=== PATIENT | female | born 1940 | race Caucasian/White ===

== ENCOUNTER 2022-11-23 09:06 | Outpatient (CLI) | payer MEDICARE, SELFPAY | END 2022-11-23 09:07 | disposition home or self-care (01) | LOC: NFLDREF 22:30 | PROVIDERS: PCP Family Medicine; Referring Provider Family Medicine; Visit Provider Family Medicine | DX: E03.9 Hypothyroidism, unspecified (principal) | CPT/HCPCS: 80053; 84439; 84443 ==

== ENCOUNTER 2023-05-03 12:13 | Outpatient (CLI) | payer MEDICARE, SELFPAY | END 2023-05-03 12:14 | disposition home or self-care (01) | PROVIDERS: PCP Family Medicine; Visit Provider Family Medicine | DX: I10 Essential (primary) hypertension (principal); E03.9 Hypothyroidism, unspecified; R63.4 Abnormal weight loss; Z12.31 Encounter for screening mammogram for malignant neoplasm of breast | CPT/HCPCS: 82607 ==

== ENCOUNTER 2023-07-03 15:34 | Outpatient (CLI) | payer MEDICARE, SELFPAY | END 2023-07-03 15:35 | disposition home or self-care (01) | LOC: AMB 07-06 13:01 | PROVIDERS: PCP Family Medicine; Visit Provider Family Medicine | DX: R06.02 Shortness of breath (principal); R09.02 Hypoxemia | CPT/HCPCS: A0425; A0427 ==

== ENCOUNTER 2023-07-03 16:23 | Inpatient (IN) | payer MEDICARE, SELFPAY ==
[2023-07-03] VITALS (25 sets, daily range): BP systolic 134–166; BP diastolic 72–95; PULSE 99–132; RESP 20–38; TEMP 36.6–37.2; O2SAT 80–98; BMI 22.5; BMI 23.2
--- NOTE | 2023-07-03 16:35 | CRLHL7_ITS ---
For Patients: As a result of the Century Cures Act, medical imaging exams and procedure reports are released immediately into your electronic medical record. You may view this report before your referring provider. If you have questions, please contact your health care provider. INDICATION: Shortness of breath TECHNIQUE: Chest 1 view. COMPARISON: Chest x-ray 03/04/2023 FINDINGS/IMPRESSION: Heart is stable in size. There is increasing interstitial thickening and opacities, bilaterally. This could represent acute pulmonary edema or pneumonia superimposed upon chronic interstitial changes. Dictated by Jennifer De La Rosa MD @ 07/03/2023 5:25:13 PM Dictated by: Jennifer De La Rosa MD @ 07/03/2023 17:25:18 (Electronically Signed)
[2023-07-03 16:46] LABS: HCO3 VBG 27 mmol/L (21-28); Lactate* 2.1 mmol/L (0.5-1.9); PCO2 VBG 44 mmHG (40-50); pH VBG 7.398 (7.32-7.43)
[2023-07-03 16:48] LABS: Basophils Percent Auto 0.1 % (0.0-3.0); Eosinophils Percent Auto 0.3 % (0.0-7.0); Hemoglobin* 10.9 gm/dL (12.0-16.0); Immature Granulocytes Pct Auto 0.1 %; Lymphocytes Percent Auto 6.1 % (20-44); Mean Corpuscular HGB Conc 32 gm/dL (32-36); Mean Corpuscular Hemoglobin 31 pg (26-34); Mean Corpuscular Volume 95 fL (80-100); Monocytes Percent Auto 8.2 % (0.0-11.0); Neutrophils Percent Auto 85.2 % (42.0-72.0); Platelet Count* 608 K/uL (140-440); RDW Coefficient of Variation % 13.7 % (11.5-15.5); Red Blood Count 3.57 m/uL (4.00-5.20)
[2023-07-03] MEDS: IPRAT-ALBUT 0.5-2.5 MG/3 ML NEB 1 NEB IH ×2 (17:00→20:08)
[2023-07-03 17:01] LABS: Chloride* 101 mmol/L (96-114); Potassium* 3.5 mmol/L (3.6-5.1); Sodium* 135 mmol/L (135-149)
[2023-07-03 17:04] LABS: Creatinine* 0.9 mg/dL (0.5-1.5); Est. Creatinine Clearance* 38.36; Estimated Glomerular Filt Rate 63 ml/min; Slide Review Reflex No
[2023-07-03 17:07] LABS: Anion Gap 10 mEq/L (7-15); Blood Urea Nitrogen* 28 mg/dL (7-30); Calcium* 8.9 mg/dL (8.4-10.6); Carbon Dioxide* 24 mmol/L (20-32); Glucose* 134 mg/dL (60-115)
[2023-07-03 17:16] LABS: ABG PCO2 35 mmHG (35-45); Base Excess ABG 3.2 mmol/L (-3.0-3.0); Carboxyhemoglobin* 1.9 % (0.0-5.0); HCO3 ABG 27 mmol/L (21-28); Lactate* 1.1 mmol/L (0.5-1.9); Oxygen Saturation ABG 96 % (92-100); PO2 ABG 71.2 mmHG (80-105); TCO2 ABG 24 mmol/l (21-30); pH ABG 7.49 (7.35-7.45)
[2023-07-03 17:20] LABS: INR 1.06 (0.91-1.10); Prothrombin Time 14.4 Seconds
[2023-07-03 17:21] LABS: Partial Thromboplastin Time* 41 Seconds (23-33)
[2023-07-03 17:23] LABS: D Dimer Quantitative* 0.95 ug/ml (0.00-0.50)
[2023-07-03 17:30] LABS: C Reactive Protein* 6.7 mg/dL (0.5-1.0)
[2023-07-03 17:36] LABS: PCR FLU A Negative PCR FLU A (Negative); PCR FLU B Negative PCR FLU B (Negative); PCR RSV Negative PCR RSV (Negative)
[2023-07-03 17:37] LABS: NT Pro B Type NatriureticPept* 3800 pg/mL; SARS PCR* Negative SARS-CoV-2 (Negative)
[2023-07-03 17:38] LABS: Troponin I* 0.04 ng/mL (0.01-0.04)
[2023-07-03] MEDS: cefTRIAXone 1 GM in 0.9 % SODIUM CHLORIDE Mini-bag 100 ML IVPB (17:51)
[2023-07-03] MEDS: AZITHROMYCIN 500 MG in 0.9 % SODIUM CHLORIDE 250 ml 250 ML 255 MG IVPB (17:52)
--- NOTE | 2023-07-03 18:13 | CRLHL7_ITS ---
For Patients: As a result of the Century Cures Act, medical imaging exams and procedure reports are released immediately into your electronic medical record. You may view this report before your referring provider. If you have questions, please contact your health care provider. INDICATION: Shortness of breath TECHNIQUE: CT chest pulmonary angiogram acquired with IV contrast. 95 mL Isovue 370 COMPARISON: None FINDINGS: Cardiovascular structures: Normal caliber thoracic aorta. Main pulmonary artery appears enlarged which be seen with pulmonary arterial hypertension. No pulmonary emboli. Heart is enlarged. Coronary artery calcification. Mediastinum and britney: Mediastinal and right hilar adenopathy. This could be reactive. Lungs: Emphysema. Diffuse ground-glass opacities. Right greater than left patchy consolidation. There is diffuse bronchiectasis as well probable honeycombing. Pleura and pericardium: No effusions. Chest wall and axilla: No mass or adenopathy. Bones: No significant findings. Upper abdomen: Unremarkable. Diffuse subcutaneous edema. IMPRESSION: 1. No pulmonary emboli. 2. Diffuse bilateral ground-glass opacities and interstitial opacities. There is bibasilar right greater than left patchy consolidation. There is bronchiectasis and honeycombing. Findings probably reflect pulmonary edema with pulmonary fibrosis. Basilar patchy consolidation right greater than left could be related to superimposed pneumonia/infection Please note that all CT scans at this facility use dose modulation, iterative reconstruction, and/or weight-based dosing when appropriate to reduce radiation dose to as low as reasonably achievable. Dictated by Mary Ann Fisher MD @ 07/03/2023 8:25:53 PM (Electronically Signed)
--- NOTE | 2023-07-03 19:17 | ED.SOB ---
HPI - SOB/Dyspnea General Date Seen: 07/03/23 Chief Complaint: Shortness of Breath/Dyspnea Stated Complaint: pain Time Seen by Provider: 07/03/23 16:45 Source: patient, family and EMS Mode of arrival: EMS Limitations: no limitations History of Present Illness HPI Narrative: Patient is very nice 83-year-old female presents here by EMS for shortness of breath, this is been building over 3 week period, but became acutely worse today that her daughter called the ambulance, she was found to have saturations in the high 70% at home, she is placed on a 10 L rebreathe and brought in, she has known pulmonary fibrosis but has not seen pulmonology for a few years. She has had some recent problems with epistaxis, but does not use home oxygen she is on no inhalers also. Denies any fevers chills or sweats, little bit of chronic nasal discharge she tells me. She denies any leg swelling, no chest pain with this no nausea vomiting, but really does not get outside her residence. No history of any heart issues as far she knows Sees Dr. Corona in [place]. Treatment prior to arrival: oxygen Related Data Home oxygen amount: none Home Medications Medication Instructions Recorded Confirmed arginine HCl (L-arginine) 1,000 mg 3,000 mg PO 12/20/22 06/01/23 tablet lutein 20 mg capsule 20 mg PO QDAY 12/20/22 06/01/23 magnesium 250 mg tablet 250 mg PO QDAY 12/20/22 06/01/23 multivitamin (Multiple Vitamins 1 tab PO QDAY 12/20/22 06/01/23 tablet) omega-3 fatty acids 1,000 mg 1,000 mg PO QDAY 12/20/22 06/01/23 capsule Previous Rx's Medication Instructions Recorded levothyroxine 125 mcg tablet 125 mcg PO QDAY #90 tabs 03/28/23 fluticasone 100 mcg-salmeterol 50 1 inh inhalation BID #60 ea 05/03/23 mcg/dose blistr powdr for inhalation mirtazapine 7.5 mg tablet 7.5 mg PO QHS #30 tabs 05/03/23 prednisone 10 mg tablet 10 mg PO QDAY #90 tabs 05/20/23 Allergies Allergy/AdvReac Type Severity Reaction Status Date / Time caffeine [From Anacin] Allergy Intermediate Swelling Verified 06/01/23 13:54 aspirin [From Anacin] Allergy Swelling Verified 06/01/23 13:54 Review of Systems Status of ROS: Reports: 10 or more systems reviewed and unremarkable except as noted in History and below PFSH [facility] Surgical History S/P LASIK (laser assisted in situ keratomileusis) ?Z98.890 - Other specified postprocedural states (ICD-10) S/P SABAS (total abdominal hysterectomy) ?Z90.710 - Acquired absence of both cervix and uterus (ICD-10) History of tonsillectomy and adenoidectomy (06/15/12) ?Z90.89 - Acquired absence of other organs (ICD-10) History of appendectomy (06/15/12) ?Z90.49 - Acquired absence of other specified parts of digestive tract (ICD-10) Social History Smoking Status: Never smoker Exam Narrative: Exam Narrative: Patient is seen in room 6, she is in no apparent distress but does have some increased worker breathing, I would describe as moderate. She can talk to me in broken sentences to start with, she is already on full oxygen at 60 L, 30%. By respiratory therapy Pupils equal round reactive to light there is no scleral icterus redness or TMs are normal her oropharynx is normal, JVP is flat, her lungs show crackles to mid scapula bilaterally, expiratory wheezes in all lung berry. Heart sounds are distant faint but S1-S2 are normal there is no S3-S4 clicks murmurs or gallops, her abdomen is soft and pot belly there is no organomegaly bowel sounds are normal. No tenderness to palpation. Her legs show very minimal pitting edema bilaterally, no unilateral swelling, no to pain. Skin reveals no rashes she is neurologically intact moving her upper lower extremities normally.. Const: Vital Signs, click to edit/add: Vital Signs - 24 hr 07/03/23 16:31 07/03/23 16:53 07/03/23 16:53 Temperature 98.7 F Pulse Rate Pulse Rate [Pulse Oximeter] 125 H Respiratory Rate 30 H 20 Blood Pressure [Ri ght Upper Arm] 166/90 H Pulse Oximetry 80 L 95 95 Oxygen Delivery Me thod Nasal Cannula High Flow Nasal Ca nnula Oxygen Flow Rate 30 Fraction of Inspir ed Oxygen 07/03/23 17:39 07/03/23 17:42 07/03/23 17:43 Temperature Pulse Rate 120 H Pulse Rate [Pulse Oximeter] Respiratory Rate Blood Pressure [Ri ght Upper Arm] Pulse Oximetry 96 Oxygen Delivery Me thod High Flow Nasal Ca nnula Oxygen Flow Rate 30 Fraction of Inspir ed Oxygen 30 30 Documenting provider has reviewed patient's vital signs: yes Course Course ED Course: Life-threatening differential diagnosis includes occluded COPD exacerbation, pulmonary edema, acute coronary syndromes, pulmonary embolism, pneumonia, and pneumothorax. Other differential diagnosis considerations include asthma, bronchitis as well as other etiologies Discussed with her, given her need for oxygen at this point she will need to be admitted, chest x-ray showed worsening of her pulmonary fibrosis, radiology thought that this was possibly consistent with either failure, flash pulmonary edema or pneumonia. Laboratory work showed elevated white count, elevated BNP, and slightly elevated D-dimer. Troponin was normal. CT scan is done with IV contrast, this shows right lower lobe, increasing pneumonic features suggestive of pneumonia, on baseline pulmonary fibrosis. I do not see any evidence on my read of pulmonary embolism. Radiology read pending. I spoke to the inpatient hospitalist, but admission she was given Rocephin and Zithromax, hospitalist attending her here in the emergency room. Vital Signs Vital signs: Initial Vital Signs Respiratory Effort Normal 07/03/23 16:30 Respiratory Depth Normal 07/03/23 16:30 Respiratory Pattern Normal 07/03/23 16:30 Vital Signs Temperature 98.7 F 07/03/23 16:31 Pulse Rate 125 H 07/03/23 16:31 Respiratory Rate 30 H 07/03/23 16:31 Blood Pressure 166/90 H 07/03/23 16:31 Pulse Oximetry 80 L 07/03/23 16:31 Oxygen Delivery Method Nasal Cannula 07/03/23 16:31 Temperature 98.7 F 07/03/23 16:31 Pulse Rate 120 H 07/03/23 17:39 Respiratory Rate 20 07/03/23 16:53 Blood Pressure 166/90 H 07/03/23 16:31 Pulse Oximetry 96 07/03/23 17:39 Oxygen Delivery Method High Flow Nasal Cannula 07/03/23 17:43 Oxygen Flow Rate 30 07/03/23 17:42 Fraction of Inspired Oxygen 30 07/03/23 17:43 MDM - SOB/Dyspnea Medical Records Attestation: I reviewed the patient's medical records. Lab Data Attestation: I reviewed the patient's lab results. Labs: Lab Results 07/03/23 07/03/23 07/03/23 Range/Units 16:38 17:10 Unknown WBC 14.60 H (4.50-11.00) K/uL RBC 3.57 L (4.00-5.20) m/uL Hgb 10.9 L (12.0-16.0) gm/dL Hct 34.0 (33.0-51.0) % MCV 95 (80-100) fL MCH 31 (26-34) pg MCHC 32 (32-36) gm/dL RDW Coeff of Radha 13.7 (11.5-15.5) % Plt Count 608 H (140-440) K/uL Neut % (Auto) 85.2 H (42.0-72.0) % Lymph % (Auto) 6.1 L (20-44) % Nicholas % (Auto) 8.2 (0.0-11.0) % Eos % (Auto) 0.3 (0.0-7.0) % Baso % (Auto) 0.1 (0.0-3.0) % Neut # (Auto) 12.40 H (1.7-7.0) K/uL Lymph # (Auto) 0.90 (0.90-2.90) K/uL Nicholas # (Auto) 1.20 H (0.00-0.90) K/UL Eos # (Auto) 0.00 (0.00-0.50) K/uL Baso # (Auto) 0.00 (0.00-0.30) K/uL Abs Immat Gran (auto) 0.00 (0.00-0.30) K/uL Imm/Tot Granulo (auto) 0.1 % INR 1.06 (0.91-1.10) APTT 41 H (23-33) Seconds D-Dimer Quant (PE/DVT) 0.95 H (0.00-0.50) ug/ml ABG pH 7.49 H (7.35-7.45) ABG pCO2 35 (35-45) mmHG ABG pO2 71.2 L (80-105) mmHG ABG HCO3 27 (21-28) mmol/L ABG Total CO2 24 (21-30) mmol/l ABG O2 Saturation 96 (92-100) % ABG Base Excess 3.2 H (-3.0-3.0) mmol/L VBG pH 7.398 (7.32-7.43) VBG pCO2 44 (40-50) mmHG VBG pO2 34.0 (25-47) mmHG VBG HCO3 27 (21-28) mmol/L Carboxyhemoglobin 1.9 (0.0-5.0) % Sodium 135 (135-149) mmol/L Potassium 3.5 L (3.6-5.1) mmol/L Chloride 101 (96-114) mmol/L Carbon Dioxide 24 (20-32) mmol/L Anion Gap 10 (7-15) mEq/L BUN 28 (7-30) mg/dL Creatinine 0.9 (0.5-1.5) mg/dL Estimated Creat Clear 38.36 Estimated GFR 63 ml/min Glucose 134 H (60-115) mg/dL Lactate 2.1 H 1.1 (0.5-1.9) mmol/L Calcium 8.9 (8.4-10.6) mg/dL Troponin I 0.04 (0.01-0.04) ng/mL C-Reactive Protein 6.7 H (0.5-1.0) mg/dL NT-Pro-B Natriuret Pep 3800 pg/mL SARS-CoV-2 (PCR) Negative SARS-CoV-2 (Negative) Influenza Type A (PCR) Negative PCR FLU A (Negative) Influenza Type B (PCR) Negative PCR FLU B (Negative) RSV (PCR) Negative PCR RSV (Negative) Imaging Data Chest x-ray: Attestation: I have reviewed the pertinent imaging results. Discharge Plan Discharge Clinical Impression: Shortness of breath, Pulmonary fibrosis, Hypoxia, Pneumonia Patient Disposition: Admitted As Inpatient Condition: Improved
[2023-07-03] MEDS: FUROSEMIDE 10 MG/ML inj 20 MG IVP (21:20)
[2023-07-03] MEDS: ALBUTEROL SULFATE 2.5 MG/3 ML VIAL.NEB NEB (21:21)
[2023-07-03] MEDS: DOXYCYCLINE HYCLATE 100 MG PO (21:22)
[2023-07-03] MEDS: MIRTAZAPINE 15 MG TABLET 7.5 MG PO (21:22)
[2023-07-03] MEDS: predniSONE 10 MG TABLET PO (21:23)
[2023-07-03] MEDS: SODIUM CHLORIDE 0.9 % (FLUSH) 10 ML SYRINGE 5 ML IVF (21:23)
--- NOTE | 2023-07-03 21:24 | PM.IMHP1 ---
Hospitalist- H&P: HPI History of Present Illness Date Seen: 07/03/23 Chief complaint: Shortness of breath Narrative: Nicole Restrepo is a 83 year old woman who presents with the 3 week history of increasing dyspnea. Patient known to have chronic interstitial pulmonary fibrosis. Heretofore has not utilize oxygen supplementation. Does have an oximeter device at her home and she reluctantly tells me that she has noticed her oxygen saturations BP in the 70s for the last 2-3 weeks. Her daughter came to visit her today and noticed how sickly her mother looked in finally convinced her to come in for further assessment. Ambulance was summoned via EMS. Found to have room air oxygen saturations in the mid to upper 70s at home. Started on a 10 liter/minute rebreather mask oxygen supplementation. Known to have pulmonary interstitial fibrosis for number of years. 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 Has had intermittent epistaxis for the last several months. Denies fevers, rigors, diaphoresis. Has chronic dry cough. Chronic postnasal drip. No syncope or near syncope. No nausea vomiting. No chest pressure, tightness, heaviness, or pain. No edema. No claudication. Review of Systems Status of ROS: Reports: 10 or more systems reviewed and unremarkable except as noted in History and below Narrative: Denies dyspepsia, odynophagia, dysphagia, aspiration, gagging, trauma, injury, travel, any febrile illnesses. Denies dysuria, urgency, frequency, hematuria. Denies diarrhea or constipation. No rashes, cyanosis, petechiae, or wounds. Designates her daughter as her power of tax associate attorney for health should that be required. Unequivocally requests DNR DNI resuscitation status. [facility] Medical History Pulmonary fibrosis ?J84.10 - Pulmonary fibrosis, unspecified (ICD-10) Epistaxis ?R04.0 - Epistaxis (ICD-10) Chronic cough ?R05.3 - Chronic cough (ICD-10) Chronic dyspnea ?R06.09 - Other forms of dyspnea (ICD-10) Osteoarthritis of right knee ?M17.11 - Unilateral primary osteoarthritis, right knee (ICD-10) Osteoarthritis of lumbar spine ?M47.816 - Spondylosis without myelopathy or radiculopathy, lumbar region (ICD-10) Hypertension ?I10 - Essential (primary) hypertension (ICD-10) Hypothyroidism ?E03.9 - Hypothyroidism, unspecified (ICD-10) Surgical History S/P LASIK (laser assisted in situ keratomileusis) ?Z98.890 - Other specified postprocedural states (ICD-10) S/P SABAS (total abdominal hysterectomy) ?Z90.710 - Acquired absence of both cervix and uterus (ICD-10) History of tonsillectomy and adenoidectomy (06/15/12) ?Z90.89 - Acquired absence of other organs (ICD-10) History of appendectomy (06/15/12) ?Z90.49 - Acquired absence of other specified parts of digestive tract (ICD-10) Social History Smoking Status: Never smoker Meds Home Medications and Allergies Home Medications Medication Instructions Recorded Confirmed Type arginine HCl (L-arginine) 1,000 mg 3,000 mg PO 12/20/22 06/01/23 History tablet lutein 20 mg capsule 20 mg PO QDAY 12/20/22 06/01/23 History magnesium 250 mg tablet 250 mg PO QDAY 12/20/22 06/01/23 History multivitamin (Multiple Vitamins 1 tab PO QDAY 12/20/22 06/01/23 History tablet) omega-3 fatty acids 1,000 mg 1,000 mg PO QDAY 12/20/22 06/01/23 History capsule Allergies Allergy/AdvReac Type Severity Reaction Status Date / Time caffeine [From Anacin] Allergy Intermediate Swelling Verified 06/01/23 13:54 aspirin [From Anacin] Allergy Swelling Verified 06/01/23 13:54 Exam Narrative: Exam Narrative: Examined patient emergency department. Vision and hearing are normal. Appears ill. Dry cough intermittently. Friendly, articulate, cooperative. Gracious. Alert and oriented to self, place, time, situation. Normal tympanic membranes. Deviated nasal septum. Dry buccal mucosa. Dentition in fair repair. No icterus or jaundice. No conjunctival injection. Pupils equally round react to light and accommodation. Extraocular muscles are intact. Conjugate gaze. Midline trachea. No head neck lymphadenopathy. Neck supple. Lungs with scattered wheezes with coarse rales bilaterally right base more so than the left. Chest wall excursions are full. Heart tones with regular rhythm, normal S1-S2. Abdomen with active bowel sounds, soft, nontender. Extremities without edema. Dyspnea with minimal exertion. Dyspnea with talking. Const: Vital Signs, click to edit/add: Vital Signs - 24 hr 07/03/23 16:31 07/03/23 16:35 07/03/23 16:53 Temperature 98.7 F Pulse Rate Pulse Rate [Pulse Oximeter] 125 H Respiratory Rate 30 H Blood Pressure Blood Pressure [Ri ght Upper Arm] 166/90 H Pulse Oximetry 80 L 95 Oxygen Delivery Me thod Nasal Cannula Oxygen Flow Rate Fraction of Inspir ed Oxygen 30 07/03/23 16:53 07/03/23 17:39 07/03/23 17:40 Temperature Pulse Rate 120 H 123 H Pulse Rate [Pulse Oximeter] Respiratory Rate 20 Blood Pressure Blood Pressure [Ri ght Upper Arm] Pulse Oximetry 95 96 96 Oxygen Delivery Me thod High Flow Nasal Ca nnula Oxygen Flow Rate 30 Fraction of Inspir ed Oxygen 07/03/23 17:42 07/03/23 17:43 07/03/23 17:50 Temperature Pulse Rate 126 H Pulse Rate [Pulse Oximeter] Respiratory Rate Blood Pressure Blood Pressure [Ri ght Upper Arm] Pulse Oximetry 93 Oxygen Delivery Me thod High Flow Nasal Ca nnula Oxygen Flow Rate 30 Fraction of Inspir ed Oxygen 30 30 07/03/23 18:00 07/03/23 18:10 07/03/23 18:20 Temperature Pulse Rate 127 H 99 110 H Pulse Rate [Pulse Oximeter] Respiratory Rate Blood Pressure Blood Pressure [Ri ght Upper Arm] Pulse Oximetry 96 98 94 Oxygen Delivery Me thod Oxygen Flow Rate Fraction of Inspir ed Oxygen 07/03/23 18:30 07/03/23 18:40 07/03/23 19:04 Temperature Pulse Rate 110 H 126 H 118 H Pulse Rate [Pulse Oximeter] Respiratory Rate Blood Pressure Blood Pressure [Ri ght Upper Arm] Pulse Oximetry 96 96 81 L Oxygen Delivery Me thod Oxygen Flow Rate Fraction of Inspir ed Oxygen 07/03/23 19:06 07/03/23 19:10 07/03/23 19:20 Temperature Pulse Rate 114 H 132 H 115 H Pulse Rate [Pulse Oximeter] Respiratory Rate Blood Pressure 142/88 H Blood Pressure [Ri ght Upper Arm] Pulse Oximetry 87 L 89 92 Oxygen Delivery Me thod Oxygen Flow Rate Fraction of Inspir ed Oxygen 07/03/23 19:30 07/03/23 19:40 07/03/23 19:50 Temperature Pulse Rate 123 H 116 H 108 H Pulse Rate [Pulse Oximeter] Respiratory Rate Blood Pressure Blood Pressure [Ri ght Upper Arm] Pulse Oximetry 85 L 90 92 Oxygen Delivery Me thod Oxygen Flow Rate Fraction of Inspir ed Oxygen 07/03/23 20:00 07/03/23 20:39 Temperature Pulse Rate 108 H Pulse Rate [Pulse Oximeter] Respiratory Rate Blood Pressure Blood Pressure [Ri ght Upper Arm] Pulse Oximetry 90 Oxygen Delivery Me thod Oxygen Flow Rate 20 Fraction of Inspir ed Oxygen 40 Documenting provider has reviewed patient's vital signs: yes Hospitalist - H&P: Result Labs Labs: Short CBC 07/03/23 Range/Units 16:38 WBC 14.60 H (4.50-11.00) K/uL Hgb 10.9 L (12.0-16.0) gm/dL Hct 34.0 (33.0-51.0) % Plt Count 608 H (140-440) K/uL BMP 07/03/23 16:38 Sodium 135 Potassium 3.5 L Chloride 101 Carbon Dioxide 24 BUN 28 Creatinine 0.9 Glucose 134 H Calcium 8.9 Cardiac Enzymes 07/03/23 Range/Units 16:38 Troponin I 0.04 (0.01-0.04) ng/mL Imaging Chest x-ray: Attestation: I have reviewed the pertinent imaging results. Radiologist's impression: 07/03/2023 FINDINGS/IMPRESSION: Heart is stable in size. There is increasing interstitial thickening and opacities, bilaterally. This could represent acute pulmonary edema or pneumonia superimposed upon chronic interstitial changes. CT angiogram of chest: Attestation: I have reviewed the pertinent imaging results. Radiologist's impression: 07/03/2023 IMPRESSION: 1. No pulmonary emboli. 2. Diffuse bilateral ground-glass opacities and interstitial opacities. There is bibasilar right greater than left patchy consolidation. There is bronchiectasis and honeycombing. Findings probably reflect pulmonary edema with pulmonary fibrosis. Basilar patchy consolidation right greater than left could be related to superimposed pneumonia/infection Assessment and Plan Assessment and plan (1) Acute on chronic respiratory failure with hypoxemia: Problem comment: - her resting, room air oxygen saturations on 1st presentation in the low to mid 70s. - high-flow oxygen 30 liters/minute FiO2 60 maintain saturations 90-92%. Status: Acute (2) Pulmonary fibrosis: Problem comment: - continue with oxygen supplementation as instituted in the hospital. - will request a consultation from respiratory therapy. Need to start looking at home O2 needs. Status: Acute (3) Pneumonia: Problem comment: - I suspect patient has a superimposed pneumonia, community-acquired. - initiate ceftriaxone 1 g IV Q 24 hours and oral doxycycline 100 mg twice daily. Status: Acute (4) Chronic cough: Problem comment: - initiate hydroxyzine 25 mg q.4 hours p.r.n.. Status: Acute (5) Chronic dyspnea: Problem comment: - patient already notes an improvement in her condition with oxygen supplementation. Status: Acute (6) Hypothyroidism: Problem comment: - continue with levothyroxine supplementation. Status: Acute (7) Hypertension: Problem comment: - continue supportive efforts. Status: Acute (8) Epistaxis: Problem comment: - intermittently problematic. Status: Acute (9) Shortness of breath: Problem comment: - multifactorial on presentation to the hospital. Status: Acute Plan 1. Reviewed impression with patient and her daughter. 2. Answered their questions. 3. They are agreeable with above stated plans and recommendations. 4. Consider discussing the options for palliative care versus hospice support.
[2023-07-04] VITALS (19 sets, daily range): BP systolic 112–137; BP diastolic 70–83; PULSE 90–112; RESP 20–28; TEMP 36.1–37.6; O2SAT 90–96; BMI 21.7
[2023-07-04] MEDS: IPRAT-ALBUT 0.5-2.5 MG/3 ML NEB 1 NEB IH ×4 (02:11→20:48)
[2023-07-04 03:21] LABS: HCO3 VBG 30 mmol/L (21-28); PCO2 VBG 43 mmHG (40-50); PO2 VBG 51.6 mmHG (25-47)
[2023-07-04 03:23] LABS: Hematocrit 28.5 % (33.0-51.0); Hemoglobin* 9.4 gm/dL (12.0-16.0); Mean Corpuscular HGB Conc 33 gm/dL (32-36); Mean Corpuscular Hemoglobin 31 pg (26-34); Mean Corpuscular Volume 94 fL (80-100); Platelet Count* 413 K/uL (140-440); Red Blood Count 3.03 m/uL (4.00-5.20); Slide Review Reflex No; White Blood Count* 12.14 K/uL (4.50-11.00)
[2023-07-04 03:36] LABS: Chloride* 101 mmol/L (96-114); Potassium* 3.5 mmol/L (3.6-5.1); Sodium* 136 mmol/L (135-149)
[2023-07-04 03:39] LABS: Creatinine* 0.8 mg/dL (0.5-1.5); Est. Creatinine Clearance* 38.36; Estimated Glomerular Filt Rate 73 ml/min
[2023-07-04 03:40] LABS: Anion Gap 6 mEq/L (7-15); Blood Urea Nitrogen* 22 mg/dL (7-30); Calcium* 8.2 mg/dL (8.4-10.6); Carbon Dioxide* 29 mmol/L (20-32); Glucose* 123 mg/dL (60-115); Phosphorus* 5.1 mg/dL (2.5-4.5)
[2023-07-04 03:43] LABS: C Reactive Protein* 7.4 mg/dL (0.5-1.0)
[2023-07-04 03:52] LABS: Troponin I* 0.03 ng/mL (0.01-0.04)
[2023-07-04 03:57] LABS: Procalcitonin* 0.34 ng/mL (<0.50)
[2023-07-04] MEDS: LEVOTHYROXINE 125 MCG TABLET PO (06:41)
[2023-07-04] MEDS: FUROSEMIDE 10 MG/ML inj 40 MG IVP ×2 (08:21→16:43)
[2023-07-04] MEDS: METOPROLOL TARTRATE 1 MG/ML inj 5 MG IVP (08:21)
[2023-07-04] MEDS: POTASSIUM BICARB 25 MEQ EFFERVESCENT TAB 50 MEQ PO ×2 (08:21→16:43)
[2023-07-04] MEDS: MAGNESIUM OXIDE 400 MG TABLET PO (08:22)
[2023-07-04] MEDS: DOXYCYCLINE HYCLATE 100 MG PO ×2 (08:22→20:48)
[2023-07-04] MEDS: SODIUM CHLORIDE 0.9 % (FLUSH) 10 ML SYRINGE 5 ML IVF ×2 (08:24→20:50)
[2023-07-04] MEDS: BENZOCAINE/MENTHOL 1 EACH LOZENGE MUCOUS MEM (10:29)
--- NOTE | 2023-07-04 10:53 | REH.PT ---
Pt refusing PT eval d/t stomach upset and fatigue from medication. Will reattempt tomorrow.
--- NOTE | 2023-07-04 10:53 | RESP.RT ---
Decreased Oxygen to 45% FiO2, Flow 20 Lpm, temperature 36 degrees (C) on HFNC. Goal is to maintain SaO2 >90%, Patient may be off HFNC for short periods of time, on either Nasal Cannula or OxyMask and Flows maintaining Goal. Portable tank was placed in room with 14 foot tubing and connector to HFNC tubing so patient may walk to bathroom, and around room as she feels able to do.
[2023-07-04] MEDS: METOPROLOL TARTRATE 25 MG TABLET PO ×2 (12:23→20:48)
--- NOTE | 2023-07-04 13:41 | P.IMPN_ITS ---
Progress Note: A&P Assessment and plan (1) Acute on chronic respiratory failure with hypoxemia: Problem details: The cause of her acute hypoxic respiratory failure appears to be related to her underlying pulmonary fibrosis plus a new respiratory insult. Clinically this appears to be either a relatively diffuse patchy pneumonia or pulmonary edema. This point will treat for both conditions and follow. Status: Acute (2) Chronic cough: Problem details: - initiate hydroxyzine 25 mg q.4 hours p.r.n.. Status: Acute (3) Hypothyroidism: Problem details: - continue with levothyroxine supplementation. Check TSH Status: Acute (4) Pulmonary fibrosis: Problem details: - continue with oxygen supplementation as instituted in the hospital. - will request a consultation from respiratory therapy. Status: Acute (5) Pneumonia: Problem details: - I suspect patient has a superimposed pneumonia, community-acquired. - initiate ceftriaxone 1 g IV Q 24 hours and oral doxycycline 100 mg twice daily. Status: Acute (6) Sinus tachycardia: Problem details: she has a fairly marked sinus tachycardia which may be due to her respiratory failure primarily. Alternatively she could be having primary cardiac problem manifesting as sinus tachycardia. At this point will provide rate control and diuresis pending echocardiogram and further monitoring Status: Acute Plan continue in hospital for oxygen support, treatment of pneumonia and heart failure. Ongoing evaluation management of hypoxia and still a plan to return home at discharge Time Spent With Patient Total time spent: total time spent today is 60 minutes, 40 minutes in coordination of care discussing with patient and daughter and other providers management of hypoxic respiratory failure Subjective Date Seen: 07/04/23 Interval history: 83-year-old female with pulmonary fibrosis admitted to the hospital with a 2 month history of progressive dyspnea. patient lives independently in her own home where she was generally doing well until about 2 months ago when she started to have worsening dyspnea. She gradually was intolerant of much activity. Her daughter had urged her to come to the hospital but she had resistant until last night when she finally gave in. She has not had a fever. She has a dry cough which is getting a little bit worse. She has not had any chest pain. She is not aware of any palpitations she does not have any edema. She does note that she is losing weight. our records indicate that she has lost 9 kg in the last 6 months. She thinks it might be much more over the last year and a half. She reports generally she does does not have much of an appetite. She monitors her oximetry at home and is consistently in the 90s up until the last few weeks. She lives independently is able to perform all of her tasks around the house until recently. This summer she was mowing her lawn with a riding lawnmower. She has stopped going out of the house and doing a lot of activities because of her exertional dyspnea. She has had some episodes of epistaxis and is having her nose cauterized A couple times with good success. She has pulmonary fibrosis and has been followed by a incendiary powder mixer until COVID. Since then she has not been back to the incendiary powder mixer. She is not aware of any heart disease. He has no chest pain, Edema or nocturnal dyspnea. overnight she was admitted to the hospital and placed on high-flow oxygen to keep her O2 sats at 90%. She reports her breathing is better on with supplemental oxygen. Exam Narrative: Exam Narrative: She is alert and appears in mild respiratory distress with increased rate and work of breathing. She has mild conversational dyspnea. Oropharynx is normal. Neck is supple without mass or adenopathy. No jugular venous distension. Respirations with diffuse crackles and diminished breath sounds. No marked wheezing. No marked prolonged expiratory phase. She is visibly tachypneic however. Cardiovascular: S1, S2, irregularly tachycardic. telemetry shows sinus tachycardia with premature atrial beats. Abdomen is soft without tenderness or mass. Extremities without edema. Const: Vital Signs, click to edit/add: Vital Signs - 24 hr 07/03/23 16:31 07/03/23 16:35 07/03/23 16:53 Temperature 98.7 F Pulse Rate Pulse Rate [Pulse Oximeter] 125 H Respiratory Rate 30 H Blood Pressure Blood Pressure [Le ft Arm] Blood Pressure [Ri ght Upper Arm] 166/90 H Pulse Oximetry 80 L 95 Oxygen Delivery Me thod Nasal Cannula Oxygen Flow Rate Fraction of Inspir ed Oxygen 30 07/03/23 16:53 07/03/23 17:39 07/03/23 17:40 Temperature Pulse Rate 120 H 123 H Pulse Rate [Pulse Oximeter] Respiratory Rate 20 Blood Pressure Blood Pressure [Le ft Arm] Blood Pressure [Ri ght Upper Arm] Pulse Oximetry 95 96 96 Oxygen Delivery Me thod High Flow Nasal Ca nnula Oxygen Flow Rate 30 Fraction of Inspir ed Oxygen 07/03/23 17:42 07/03/23 17:43 07/03/23 17:50 Temperature Pulse Rate 126 H Pulse Rate [Pulse Oximeter] Respiratory Rate Blood Pressure Blood Pressure [Le ft Arm] Blood Pressure [Ri ght Upper Arm] Pulse Oximetry 93 Oxygen Delivery Me thod High Flow Nasal Ca nnula Oxygen Flow Rate 30 Fraction of Inspir ed Oxygen 30 30 07/03/23 18:00 07/03/23 18:10 07/03/23 18:20 Temperature Pulse Rate 127 H 99 110 H Pulse Rate [Pulse Oximeter] Respiratory Rate Blood Pressure Blood Pressure [Le ft Arm] Blood Pressure [Ri ght Upper Arm] Pulse Oximetry 96 98 94 Oxygen Delivery Me thod Oxygen Flow Rate Fraction of Inspir ed Oxygen 07/03/23 18:30 07/03/23 18:40 07/03/23 19:04 Temperature Pulse Rate 110 H 126 H 118 H Pulse Rate [Pulse Oximeter] Respiratory Rate Blood Pressure Blood Pressure [Le ft Arm] Blood Pressure [Ri ght Upper Arm] Pulse Oximetry 96 96 81 L Oxygen Delivery Me thod Oxygen Flow Rate Fraction of Inspir ed Oxygen 07/03/23 19:06 07/03/23 19:10 07/03/23 19:20 Temperature Pulse Rate 114 H 132 H 115 H Pulse Rate [Pulse Oximeter] Respiratory Rate Blood Pressure 142/88 H Blood Pressure [Le ft Arm] Blood Pressure [Ri ght Upper Arm] Pulse Oximetry 87 L 89 92 Oxygen Delivery Me thod Oxygen Flow Rate Fraction of Inspir ed Oxygen 07/03/23 19:30 07/03/23 19:40 07/03/23 19:50 Temperature Pulse Rate 123 H 116 H 108 H Pulse Rate [Pulse Oximeter] Respiratory Rate Blood Pressure Blood Pressure [Le ft Arm] Blood Pressure [Ri ght Upper Arm] Pulse Oximetry 85 L 90 92 Oxygen Delivery Me thod Oxygen Flow Rate Fraction of Inspir ed Oxygen 07/03/23 20:00 07/03/23 20:30 07/03/23 20:39 Temperature 97.9 F Pulse Rate 108 H Pulse Rate [Pulse Oximeter] 120 H Respiratory Rate 36 H Blood Pressure Blood Pressure [Le ft Arm] 160/95 H Blood Pressure [Ri ght Upper Arm] Pulse Oximetry 90 90 Oxygen Delivery Me thod High Flow Nasal Ca nnula Oxygen Flow Rate 20 20 Fraction of Inspir ed Oxygen 40 40 07/03/23 21:30 07/03/23 21:48 07/03/23 22:00 Temperature Pulse Rate 116 H Pulse Rate [Pulse Oximeter] 114 H Respiratory Rate 38 H 28 H Blood Pressure Blood Pressure [Le ft Arm] 134/72 Blood Pressure [Ri ght Upper Arm] Pulse Oximetry 90 94 Oxygen Delivery Me thod High Flow Nasal Ca nnula High Flow Nasal Ca nnula Oxygen Flow Rate 20 20 Fraction of Inspir ed Oxygen 40 40 07/03/23 23:00 07/03/23 23:00 07/03/23 23:00 Temperature Pulse Rate Pulse Rate [Pulse Oximeter] 112 H Respiratory Rate 32 H Blood Pressure Blood Pressure [Le ft Arm] Blood Pressure [Ri ght Upper Arm] Pulse Oximetry 92 Oxygen Delivery Me thod Oxygen Flow Rate Fraction of Inspir ed Oxygen 40 07/03/23 23:00 07/04/23 00:00 07/04/23 02:00 Temperature 99.0 F Pulse Rate Pulse Rate [Pulse Oximeter] 112 H Respiratory Rate 32 H Blood Pressure Blood Pressure [Le ft Arm] 140/89 H Blood Pressure [Ri ght Upper Arm] Pulse Oximetry 92 Oxygen Delivery Me thod High Flow Nasal Ca nnula Oxygen Flow Rate 20 Fraction of Inspir ed Oxygen 40 40 40 07/04/23 02:00 07/04/23 04:00 07/04/23 06:00 Temperature 98.3 F Pulse Rate Pulse Rate [Pulse Oximeter] 110 H Respiratory Rate 28 H Blood Pressure Blood Pressure [Le ft Arm] 125/70 Blood Pressure [Ri ght Upper Arm] Pulse Oximetry 94 Oxygen Delivery Me thod High Flow Nasal Ca nnula Oxygen Flow Rate 20 Fraction of Inspir ed Oxygen 40 40 50 07/04/23 07:00 07/04/23 07:00 07/04/23 07:00 Temperature 98.8 F Pulse Rate 96 Pulse Rate [Pulse Oximeter] 112 H 112 H Respiratory Rate 28 H 28 H Blood Pressure Blood Pressure [Le ft Arm] 137/83 Blood Pressure [Ri ght Upper Arm] Pulse Oximetry 90 Oxygen Delivery Me thod High Flow Nasal Ca nnula Oxygen Flow Rate 20 Fraction of Inspir ed Oxygen 50 07/04/23 08:00 07/04/23 08:20 07/04/23 10:00 Temperature Pulse Rate Pulse Rate [Pulse Oximeter] Respiratory Rate Blood Pressure Blood Pressure [Le ft Arm] Blood Pressure [Ri ght Upper Arm] Pulse Oximetry Oxygen Delivery Me thod Oxygen Flow Rate 20 Fraction of Inspir ed Oxygen 50 50 50 07/04/23 10:52 07/04/23 11:40 07/04/23 12:00 Temperature 99.7 F H Pulse Rate Pulse Rate [Pulse Oximeter] 97 Respiratory Rate 28 H Blood Pressure Blood Pressure [Le ft Arm] 120/75 Blood Pressure [Ri ght Upper Arm] Pulse Oximetry 93 94 Oxygen Delivery Me thod High Flow Nasal Ca nnula High Flow Nasal Ca nnula Oxygen Flow Rate 20 20 Fraction of Inspir ed Oxygen 45 45 45 07/04/23 12:57 Temperature Pulse Rate Pulse Rate [Pulse Oximeter] Respiratory Rate Blood Pressure Blood Pressure [Le ft Arm] Blood Pressure [Ri ght Upper Arm] Pulse Oximetry Oxygen Delivery Me thod Oxygen Flow Rate 20 Fraction of Inspir ed Oxygen 45 Documenting provider has reviewed patient's vital signs: yes Labs Labs: Laboratory Results - last 24 hr 07/03/23 07/03/23 07/03/23 16:38 17:10 Unknown WBC 14.60 H RBC 3.57 L Hgb 10.9 L Hct 34.0 MCV 95 MCH 31 MCHC 32 RDW Coeff of Radha 13.7 Plt Count 608 H Neut % (Auto) 85.2 H Lymph % (Auto) 6.[address] [place] % (Auto) 8.2 Eos % (Auto) 0.3 Baso % (Auto) 0.1 Neut # (Auto) 12.40 H Lymph # (Auto) 0.90 [place] # (Auto) 1.20 H Eos # (Auto) 0.00 Baso # (Auto) 0.00 Abs Immat Gran (auto) 0.00 Imm/Tot Granulo (auto) 0.1 INR 1.06 APTT 41 H D-Dimer Quant (PE/DVT) 0.95 H ABG pH 7.49 H ABG pCO2 35 ABG pO2 71.2 L ABG HCO3 27 ABG Total CO2 24 ABG O2 Saturation 96 ABG Base Excess 3.2 H VBG pH 7.398 VBG pCO2 44 VBG pO2 34.0 VBG HCO3 27 Carboxyhemoglobin 1.9 Sodium 135 Potassium 3.5 L Chloride 101 Carbon Dioxide 24 Anion Gap 10 BUN 28 Creatinine 0.9 Estimated Creat Clear 38.36 Estimated GFR 63 Glucose 134 H Lactate 2.1 H 1.1 Calcium 8.9 Phosphorus Magnesium Troponin I 0.04 C-Reactive Protein 6.7 H NT-Pro-B Natriuret Pep 3800 Procalcitonin SARS-CoV-2 (PCR) Negative SARS-CoV-2 Influenza Type A (PCR) Negative PCR FLU A Influenza Type B (PCR) Negative PCR FLU B RSV (PCR) Negative PCR RSV 07/04/23 03:15 WBC 12.14 H RBC 3.03 L Hgb 9.4 L Hct 28.5 L MCV 94 MCH 31 MCHC 33 RDW Coeff of Radha Plt Count 413 Neut % (Auto) Lymph % (Auto) [place] % (Auto) Eos % (Auto) Baso % (Auto) Neut # (Auto) Lymph # (Auto) [place] # (Auto) Eos # (Auto) Baso # (Auto) Abs Immat Gran (auto) Imm/Tot Granulo (auto) INR APTT D-Dimer Quant (PE/DVT) ABG pH ABG pCO2 ABG pO2 ABG HCO3 ABG Total CO2 ABG O2 Saturation ABG Base Excess VBG pH 7.440 H VBG pCO2 43 VBG pO2 51.6 H VBG HCO3 30 H Carboxyhemoglobin Sodium 136 Potassium 3.5 L Chloride 101 Carbon Dioxide 29 Anion Gap 6 L BUN 22 Creatinine 0.8 Estimated Creat Clear 38.36 Estimated GFR 73 Glucose 123 H Lactate 1.0 Calcium 8.2 L Phosphorus 5.1 H Magnesium 2.0 Troponin I 0.03 C-Reactive Protein 7.4 H NT-Pro-B Natriuret Pep Procalcitonin 0.34 SARS-CoV-2 (PCR) Influenza Type A (PCR) Influenza Type B (PCR) RSV (PCR)
[2023-07-04] MEDS: cefTRIAXone 1 GM in 0.9 % SODIUM CHLORIDE Mini-bag 100 ML IVPB (16:44)
--- NOTE | 2023-07-04 18:20 | PC.NURSE ---
End of shift note: patient is alert and oriented x4, denies pain, N/V. Patient on Highflow and tolerating well. O2 Stats between 90-95%. Patient is assist of 1 to Bedside commode. IV in left AC SL. Not much of an appetite today, needs encouragement to eat.
[2023-07-04] MEDS: MIRTAZAPINE 15 MG TABLET 7.5 MG PO (20:48)
[2023-07-04] MEDS: predniSONE 10 MG TABLET PO (20:50)
[2023-07-05] VITALS (16 sets, daily range): BP systolic 113–146; BP diastolic 63–98; PULSE 76–92; RESP 20–24; TEMP 36.1–36.8; O2SAT 88–96; BMI 21.7
[2023-07-05] MEDS: LEVOTHYROXINE 125 MCG TABLET PO (06:31)
--- NOTE | 2023-07-05 07:28 | PC.NURSE ---
End of shift [id number] ? Pt alert and cooperative, but reported feeling fatigued during shift. Requested being left to sleep during overnight hours. Up with 1 assist, stand and pivot to bedside commode. Continent of bowel and bladder during shift. Tolerating high flow and maintaining O2 saturation from 90-95%. Pt denied pain, observed to sleep during shift. Appears to be resting comfortably at end of shift.
--- NOTE | 2023-07-05 09:11 | RESP.RT ---
Weaning Oxygen; 0815 SaO2 95%, decreased FiO2 35%, 0845 SaO2 93% decreased FiO2 30%, SaO2 decreased to 91 %. Goal to Maintain SaO2 >90%. Adjusting FiO2 as needed. Continues on HFNC, appears comfortable. Breathing regular/easy, 22/minute. BBS with diminished with fine crackles noted.
[2023-07-05] MEDS: METOPROLOL TARTRATE 25 MG TABLET PO ×2 (09:30→20:46)
[2023-07-05] MEDS: MAGNESIUM OXIDE 400 MG TABLET PO (09:30)
[2023-07-05] MEDS: IPRAT-ALBUT 0.5-2.5 MG/3 ML NEB 1 NEB IH ×3 (09:30→20:47)
[2023-07-05] MEDS: DOXYCYCLINE HYCLATE 100 MG PO ×2 (09:30→20:47)
--- NOTE | 2023-07-05 09:30 | RESP.RT ---
Patient SaO2 decreased to 80%, Nurse increased FiO2 to 40% to assist in patient recovery SaO2. Will continue weaning post activity.
[2023-07-05 10:01] LABS: Basophils Percent Auto 0.3 % (0.0-3.0); Hematocrit 34.2 % (33.0-51.0); Hemoglobin* 10.9 gm/dL (12.0-16.0); Immature Granulocytes Pct Auto 0.2 %; Lymphocytes Percent Auto 13.9 % (20-44); Mean Corpuscular HGB Conc 32 gm/dL (32-36); Mean Corpuscular Hemoglobin 30 pg (26-34); Mean Corpuscular Volume 95 fL (80-100); Neutrophils Percent Auto 76.6 % (42.0-72.0); Platelet Count* 601 K/uL (140-440); RDW Coefficient of Variation % 13.6 % (11.5-15.5); White Blood Count* 11.51 K/uL (4.50-11.00)
[2023-07-05 10:02] LABS: HCO3 VBG 36 mmol/L (21-28); PCO2 VBG 57 mmHG (40-50); PO2 VBG 22.7 mmHG (25-47)
[2023-07-05 10:05] LABS: Slide Review Reflex No
[2023-07-05 10:22] LABS: Chloride* 96 mmol/L (96-114); Potassium* 4.5 mmol/L (3.6-5.1); Sodium* 137 mmol/L (135-149)
[2023-07-05 10:25] LABS: Anion Gap 4 mEq/L (7-15); Blood Urea Nitrogen* 26 mg/dL (7-30); Carbon Dioxide* 37 mmol/L (20-32); Creatinine* 0.9 mg/dL (0.5-1.5); Est. Creatinine Clearance* 38.36; Estimated Glomerular Filt Rate 63 ml/min; Glucose* 95 mg/dL (60-115)
[2023-07-05 10:26] LABS: Calcium* 8.9 mg/dL (8.4-10.6)
[2023-07-05] MEDS: SODIUM CHLORIDE 0.9 % (FLUSH) 10 ML SYRINGE 5 ML IVF ×3 (10:41→20:48)
--- NOTE | 2023-07-05 13:18 | PM.IMPN1 ---
Progress Note: A&P Assessment and plan (1) Acute on chronic respiratory failure with hypoxemia: Problem details: The cause of her acute hypoxic respiratory failure appears to be related to her underlying pulmonary fibrosis plus a new respiratory insult. Clinically this appears to be either a relatively diffuse patchy pneumonia or pulmonary edema. Cardiac evaluation is mostly reassuring so far. Continue heart rate control and low-dose diuretic. Status: Acute (2) Chronic cough: Problem details: - initiate hydroxyzine 25 mg q.4 hours p.r.n.. Status: Acute (3) Hypothyroidism: Problem details: - continue with levothyroxine supplementation. Check TSH Status: Acute (4) Pulmonary fibrosis: Problem details: - continue with oxygen supplementation as instituted in the hospital. Likely will need home oxygen. Retaining CO2 this morning so oxygen goals will have to be a little lower, 88% - will request a consultation from respiratory therapy. Status: Acute (5) Pneumonia: Problem details: - I suspect patient has a superimposed pneumonia, community-acquired. - initiate ceftriaxone 1 g IV Q 24 hours and oral doxycycline 100 mg twice daily. Status: Acute (6) Sinus tachycardia: Problem details: she has a fairly marked sinus tachycardia which may be due to her respiratory failure primarily. Alternatively she could be having primary cardiac problem manifesting as sinus tachycardia. At this point will provide rate control and diuresis pending echocardiogram and further monitoring Status: Acute Plan Continue in hospital for oxygen, treatment of pneumonia, monitoring of respiratory failure. Anticipate discharge to home later this week. Probably will need home oxygen. Time Spent With Patient Total time spent: Total time spent today is 40 minutes, 30 minutes in coordination of care and discussing with patient and other providers management of respiratory failure. Subjective Date Seen: 07/05/23 Interval history: 83-year-old female with pulmonary fibrosis admitted to the hospital with a 2 month history of progressive dyspnea. patient lives independently in her own home where she was generally doing well until about 2 months ago when she started to have worsening dyspnea. She gradually was intolerant of much activity. Her daughter had urged her to come to the hospital but she had resistant until last night when she finally gave in. She has not had a fever. She has a dry cough which is getting a little bit worse. She has not had any chest pain. She is not aware of any palpitations she does not have any edema. She does note that she is losing weight. our records indicate that she has lost 9 kg in the last 6 months. She thinks it might be much more over the last year and a half. She reports generally she does does not have much of an appetite. She monitors her oximetry at home and is consistently in the 90s up until the last few weeks. She lives independently is able to perform all of her tasks around the house until recently. This summer she was mowing her lawn with a riding lawnmower. She has stopped going out of the house and doing a lot of activities because of her exertional dyspnea. She has had some episodes of epistaxis and is having her nose cauterized A couple times with good success. She has pulmonary fibrosis and has been followed by a inspector machine parts until COVID. Since then she has not been back to the inspector machine parts. She is not aware of any heart disease. He has no chest pain, Edema or nocturnal dyspnea. overnight she was admitted to the hospital and placed on high-flow oxygen to keep her O2 sats at 90%. She reports her breathing is better on with supplemental oxygen. Yesterday she was given diuresis. She had some clinical improvement yesterday but unclear whether the diuresis made the difference for her. She has developed a contraction alkalosis. Echocardiogram was relatively normal. Exam Narrative: Exam Narrative: She is alert and appears in no distress. Breathing is more comfortable today but she is still on high-flow nasal cannula. Respirations with fairly diffuse coarse breath sounds and crackles. Cardiovascular: S1, S2, regular rate and rhythm. Tachycardia is resolved. Abdomen is soft without tenderness. Extremities without edema. Const: Vital Signs, click to edit/add: Vital Signs - 24 hr 07/04/23 14:00 07/04/23 14:57 07/04/23 14:57 Temperature 98.8 F Pulse Rate Pulse Rate [Pulse Oximeter] 96 96 Respiratory Rate 24 24 Blood Pressure [Le ft Arm] 128/83 Pulse Oximetry 96 Oxygen Delivery Me thod High Flow Nasal Ca nnula Oxygen Flow Rate 20 Fraction of Inspir ed Oxygen 45 45 07/04/23 15:00 07/04/23 15:42 07/04/23 17:16 Temperature Pulse Rate 95 Pulse Rate [Pulse Oximeter] Respiratory Rate Blood Pressure [Le ft Arm] Pulse Oximetry Oxygen Delivery Me thod Oxygen Flow Rate Fraction of Inspir ed Oxygen 45 45 07/04/23 19:00 07/04/23 20:00 07/04/23 22:00 Temperature 98.3 F Pulse Rate Pulse Rate [Pulse Oximeter] 103 H Respiratory Rate 24 Blood Pressure [Le ft Arm] 127/83 Pulse Oximetry 92 Oxygen Delivery Me thod High Flow Nasal Ca nnula Oxygen Flow Rate 20 Fraction of Inspir ed Oxygen 45 45 45 07/04/23 23:00 07/04/23 23:00 07/05/23 00:00 Temperature 97.0 F L Pulse Rate Pulse Rate [Pulse Oximeter] 90 90 Respiratory Rate 20 Blood Pressure [Le ft Arm] 112/80 Pulse Oximetry 96 Oxygen Delivery Me thod High Flow Nasal Ca nnula Oxygen Flow Rate 20 Fraction of Inspir ed Oxygen 45 45 07/05/23 00:11 07/05/23 02:00 07/05/23 03:00 Temperature 97.2 F L Pulse Rate 86 Pulse Rate [Pulse Oximeter] 79 Respiratory Rate 20 Blood Pressure [Le ft Arm] 113/63 Pulse Oximetry 95 Oxygen Delivery Me thod High Flow Nasal Ca nnula Oxygen Flow Rate 20 Fraction of Inspir ed Oxygen 45 45 07/05/23 04:00 07/05/23 06:00 07/05/23 07:00 Temperature Pulse Rate 76 Pulse Rate [Pulse Oximeter] Respiratory Rate Blood Pressure [Le ft Arm] Pulse Oximetry Oxygen Delivery Me thod Oxygen Flow Rate Fraction of Inspir ed Oxygen 45 40 07/05/23 08:15 07/05/23 09:00 07/05/23 09:00 Temperature 96.9 F L Pulse Rate Pulse Rate [Pulse Oximeter] 87 87 Respiratory Rate 22 22 Blood Pressure [Le ft Arm] 146/98 H Pulse Oximetry 92 Oxygen Delivery Me thod High Flow Nasal Ca nnula Oxygen Flow Rate 20 20 Fraction of Inspir ed Oxygen 35 30 07/05/23 09:10 07/05/23 10:00 Temperature Pulse Rate Pulse Rate [Pulse Oximeter] Respiratory Rate 22 Blood Pressure [Le ft Arm] Pulse Oximetry 91 Oxygen Delivery Me thod High Flow Nasal Ca nnula Oxygen Flow Rate 20 Fraction of Inspir ed Oxygen 30 40 Documenting provider has reviewed patient's vital signs: yes Labs Labs: Laboratory Results - last 24 hr 07/04/23 07/04/23 07/05/23 03:15 13:44 09:49 WBC 11.51 H RBC 3.60 L Hgb 10.9 L Hct 34.2 MCV 95 MCH 30 MCHC 32 RDW Coeff of Radha 13.6 Plt Count 601 H Neut % (Auto) 76.6 H Lymph % (Auto) 13.9 L [place] % (Auto) 8.0 Eos % (Auto) 1.0 Baso % (Auto) 0.3 Neut # (Auto) 8.80 H Lymph # (Auto) 1.60 [place] # (Auto) 0.90 Eos # (Auto) 0.10 Baso # (Auto) 0.00 Abs Immat Gran (auto) 0.00 Imm/Tot Granulo (auto) 0.2 VBG pH 7.410 VBG pCO2 57 H VBG pO2 22.7 L VBG HCO3 36 H Sodium 137 Potassium 4.5 Chloride 96 Carbon Dioxide 37 H Anion Gap 4 L BUN 26 Creatinine 0.9 Estimated Creat Clear 38.36 Estimated GFR 63 Glucose 95 Calcium 8.9 TSH 4.940 H Lab Acknowledgement Test Added
--- NOTE | 2023-07-05 16:02 | PC.NURSE ---
PATIENT SOB WITH ACTIVITY. O2 SATS DECREASE TO 70'S WITH ACTIVITY. TITRATED FiO2 ON HIGH FLOW 30-40% TO MAINTAIN SATS 90-95% PER RESPIRATORY THERAPY. AT REST, ABLE TO TITRATE DOWN TO 30% Fi02 AND SATS 92-94%. ENCOURAGING ORAL INTAKE TOLERATED. PATIENT REPORTS SHE FEELS BETTER THAN YESTERDAY BUT STILL WEAK. UP WITH ASSIST TO BSC AND EDGE OF BED.
--- NOTE | 2023-07-05 16:21 | RESP.RT ---
Per slight CO2 retention SaO2 maintain between 87-90% +/- 1% per Dr. Mcnulty
--- NOTE | 2023-07-05 16:56 | PC.SOCIAL ---
Discharge planning: Met with pt and dtr at their request regarding discharge planning. Both describe pt as being very independent and not wanting to have help or bother people. Both are interested in the possibility of home health care if pt qualifies at discharge and also options for hiring additional county home demonstration agent care. Provided written information on home health care, county home demonstration agent care and a Senior visiting polygraph examiner program through [facility]. Later in the day, pt requested another social work visit after her daughter left. Pt had additional questions about Medicare coverage and discharge options. Pt made it clear, she is not interested in a [facility] stay. Pt is hoping to return home with additional assistance as needed but is also open to considering a short term stay with her daughter if needed. Pt looks forward to discussing discharge options specific to her needs when her discharge needs are determined. psychiatric social worker supervisor to follow up as needed.
[2023-07-05] MEDS: cefTRIAXone 1 GM in 0.9 % SODIUM CHLORIDE Mini-bag 100 ML IVPB (17:10)
[2023-07-05] MEDS: 0.9 % SODIUM CHLORIDE 250 ml IV (17:11)
[2023-07-05] MEDS: MIRTAZAPINE 15 MG TABLET 7.5 MG PO (20:47)
[2023-07-05] MEDS: predniSONE 10 MG TABLET PO (20:48)
--- NOTE | 2023-07-05 23:04 | PC.NURSE ---
End of Shift: Patient pleasant and cooperative. Afebrile. Denies pain. Up to BSC with 1 assist. Bottom reddened, Mepilex applied, encouraged patient to turn and reposition frequently in bed. Tolerating regular diet with no nausea. Shortness of breath with minimal activity. HFNC 20L, FiO2 30-35% to keep sats 87-90% per MD.
[2023-07-06] VITALS (19 sets, daily range): BP systolic 110–145; BP diastolic 61–77; PULSE 73–121; RESP 18–24; TEMP 36.5–37.1; O2SAT 85–92
[2023-07-06] MEDS: IPRAT-ALBUT 0.5-2.5 MG/3 ML NEB 1 NEB IH ×4 (03:30→21:13)
--- NOTE | 2023-07-06 05:41 | PC.NURSE ---
SHIFT NOTE 23-: Pt remains on HFNC 20L weaned FiO2 to 25% with oxygen saturation 87-89%. Pt reports her SOB is improved slightly, but still has very poor activity intolerance. Denies CP, pain, N/V. Up pivoting SBA to BSC.
[2023-07-06 06:29] LABS: HCO3 VBG 33 mmol/L (21-28); PCO2 VBG 48 mmHG (40-50); PO2 VBG 60.3 mmHG (25-47); pH VBG 7.448 (7.32-7.43)
[2023-07-06 06:46] LABS: Basophils Absolute Auto 0.02 K/uL (0.00-0.30); Basophils Percent Auto 0.3 % (0.0-3.0); Eosinophils Absolute Auto 0.08 K/uL (0.00-0.50); Hematocrit 31.3 % (33.0-51.0); Hemoglobin* 10.1 gm/dL (12.0-16.0); Immature Granulocytes Abs Auto 0.01 K/uL (0.00-0.30); Immature Granulocytes Pct Auto 0.1 %; Lymphocytes Percent Auto 11.2 % (20-44); Mean Corpuscular HGB Conc 32 gm/dL (32-36); Mean Corpuscular Hemoglobin 30 pg (26-34); Mean Corpuscular Volume 94 fL (80-100); Monocytes Percent Auto 7.9 % (0.0-11.0); Neutrophils Percent Auto 79.5 % (42.0-72.0); Platelet Count* 503 K/uL (140-440); RDW Coefficient of Variation % 13.4 % (11.5-15.5); Red Blood Count 3.32 m/uL (4.00-5.20); White Blood Count* 7.97 K/uL (4.50-11.00)
[2023-07-06 06:58] LABS: Chloride* 99 mmol/L (96-114); Potassium* 4.4 mmol/L (3.6-5.1); Sodium* 136 mmol/L (135-149)
[2023-07-06 06:59] LABS: Slide Review Reflex No
[2023-07-06 07:01] LABS: Anion Gap 4 mEq/L (7-15); Blood Urea Nitrogen* 27 mg/dL (7-30); Carbon Dioxide* 33 mmol/L (20-32); Creatinine* 0.8 mg/dL (0.5-1.5); Est. Creatinine Clearance* 38.36; Estimated Glomerular Filt Rate 73 ml/min
[2023-07-06 07:02] LABS: Calcium* 8.4 mg/dL (8.4-10.6); Glucose* 109 mg/dL (60-115)
[2023-07-06] MEDS: LEVOTHYROXINE 125 MCG TABLET PO (07:24)
--- NOTE | 2023-07-06 09:11 | PM.IMPN1 ---
Progress Note: A&P Assessment and plan (1) Acute on chronic respiratory failure with hypoxemia: Problem details: - cause is severe pulmonary fibrosis plus a new respiratory insult. (CHF? infectious?) - repeat chest x-ray this morning - no obvious CHF findings, may represent overlying pna -she continues on oral doxycycline and IV ceftriaxone. s/p one dose of lasix 40mg on 07/04 -she continues on a mild increase in her home prednisone dosing which was 5 mg and is now been 10 mg since admission -she continues on high-flow nasal cannula oxygen FiO2 25%, 20 L. goal is 88-90%. She previously was not on home O2. -CRP downtrending. procal was normal on admission. BNP was elevated at >3000, but weight is down. I believe her to be evulomeic Status: Acute (2) Pulmonary fibrosis: Problem details: - continue with oxygen supplementation as instituted in the hospital. Likely will need home oxygen. - wean from high flow continues, no longer retaining CO2 Status: Acute (3) Pneumonia: Problem details: - I suspect patient has a superimposed pneumonia, community-acquired. - initiate ceftriaxone 1 g IV Q 24 (first dose 07/03) and oral doxycycline 100 mg twice daily. Status: Acute (4) Sinus tachycardia: Problem details: improved with metoprolol Status: Acute (5) Hypothyroidism: Problem details: - continue with levothyroxine supplementation -TSH >4, but free T4 normal. Status: Acute (6) Chronic cough: Problem details: - initiate hydroxyzine 25 mg q.4 hours p.r.n.. Status: Acute Subjective Date Seen: 07/06/23 Interval history: Daily Progress Note - Hospital Medicine Day #: 4 CC: severe pulmonary fibrosis, superimposed community acquired pna OVERNIGHT UPDATES FROM STAFF & MED, LAB, IMAGING UPDATES -up in the chair. talkative. desats with any activity. asks insightful questions. CXR this am - 1V in the room (on High flow) Diffuse bilateral nonspecific lung disease described above, without significant interval change. Acute pneumonia superimposed upon nonspecific bilateral interstitial lung disease is not excluded. Clinical correlation is recommended in this regard. Vitals stable and she is afebrile overnight. Her blood pressure has ranged 110-145 systolic over 70s diastolic. Her pulse rate is 79-99. Respiratory rate is mildly increased at 24. She satting 88-90% on 25%/20 L by high-flow nasal cannula oxygen. Weight has decreased since arrival her admission weight was 63.2 kilos, down to 57.2 kg this morning. Her CBC reflects a down trending total white blood cell count. Blood gas shows that she is mildly alkalotic at 7.5. There is no CO2 retention. Her bicarb is 33. Her electrolytes are all stable. Her creatinine is stable. I reviewed her admission quad respiratory screen, which was negative. Reviewing her chest CT angiogram from admission: 1. No pulmonary emboli. 2. Diffuse bilateral ground-glass opacities and interstitial opacities. There is bibasilar right greater than left patchy consolidation. There is bronchiectasis and honeycombing. Findings probably reflect pulmonary edema with pulmonary fibrosis. Basilar patchy consolidation right greater than left could be related to superimposed pneumonia/infection There were no microbiology studies done. Reviewed her echo report from admission, done on 07/04: EF of 55-60%. Normal global systolic function. Right ventricle function is normal. Noted aortic valve is sclerotic without obvious aortic stenosis or insufficiency. Objective: alert. mild resp distress. talking in full sentences. Vitals: see above Lungs: Clear. Cardiac: S1S2. holosystolic murmur. Disposition/Potential discharge - Likely to return to previous living situation. Today I spent 50minutes seeing the patient, reviewing Expanse and EPIC notes/diagnostics, discussing the care plan with our care time that includes social work, PT/OT, pharmacy, RT, senior care and documenting my impressions and plan in the medical record. Exam Const: Vital Signs, click to edit/add: Vital Signs - 24 hr 07/05/23 10:00 07/05/23 12:00 07/05/23 13:00 Temperature 97 F L Pulse Rate Pulse Rate [Pulse Oximeter] 92 Respiratory Rate 22 Blood Pressure [Le ft Arm] 115/72 Pulse Oximetry 95 Oxygen Delivery Me thod High Flow Nasal Ca nnula Oxygen Flow Rate 20 Fraction of Inspir ed Oxygen 40 40 40 07/05/23 15:00 07/05/23 15:00 07/05/23 15:00 Temperature 97.9 F Pulse Rate 89 Pulse Rate [Pulse Oximeter] 91 91 Respiratory Rate 22 22 Blood Pressure [Le ft Arm] 127/84 Pulse Oximetry 91 Oxygen Delivery Me thod High Flow Nasal Ca nnula Oxygen Flow Rate 20 Fraction of Inspir ed Oxygen 35 07/05/23 15:24 07/05/23 17:00 07/05/23 19:00 Temperature Pulse Rate Pulse Rate [Pulse Oximeter] Respiratory Rate Blood Pressure [Le ft Arm] Pulse Oximetry Oxygen Delivery Me thod Oxygen Flow Rate 20 Fraction of Inspir ed Oxygen 35 30 30 07/05/23 19:00 07/05/23 21:00 07/05/23 23:00 Temperature 98.2 F Pulse Rate 78 Pulse Rate [Pulse Oximeter] 92 Respiratory Rate 24 Blood Pressure [Le ft Arm] 122/66 Pulse Oximetry 88 Oxygen Delivery Me thod High Flow Nasal Ca nnula Oxygen Flow Rate 20 Fraction of Inspir ed Oxygen 30 30 07/05/23 23:00 07/05/23 23:00 07/05/23 23:00 Temperature 97.7 F Pulse Rate Pulse Rate [Pulse Oximeter] 82 Respiratory Rate 24 24 Blood Pressure [Le ft Arm] 125/75 Pulse Oximetry 90 Oxygen Delivery Me thod High Flow Nasal Ca nnula Oxygen Flow Rate 20 Fraction of Inspir ed Oxygen 35 35 07/06/23 01:00 07/06/23 03:00 07/06/23 03:00 Temperature 97.8 F Pulse Rate Pulse Rate [Pulse Oximeter] 100 Respiratory Rate 24 Blood Pressure [Le ft Arm] 145/76 H Pulse Oximetry 89 Oxygen Delivery Me thod High Flow Nasal Ca nnula Oxygen Flow Rate 20 Fraction of Inspir ed Oxygen 30 25 30 07/06/23 05:00 07/06/23 07:00 07/06/23 08:12 Temperature Pulse Rate 79 Pulse Rate [Pulse Oximeter] Respiratory Rate Blood Pressure [Le ft Arm] Pulse Oximetry Oxygen Delivery Me thod Oxygen Flow Rate 20 Fraction of Inspir ed Oxygen 25 25 07/06/23 08:20 07/06/23 08:20 07/06/23 08:31 Temperature 98.8 F Pulse Rate Pulse Rate [Pulse Oximeter] 97 97 Respiratory Rate 24 24 Blood Pressure [Le ft Arm] 110/67 Pulse Oximetry 89 89 Oxygen Delivery Me thod High Flow Nasal Ca nnula Oxygen Flow Rate 20 Fraction of Inspir ed Oxygen 25 07/06/23 09:07 Temperature Pulse Rate Pulse Rate [Pulse Oximeter] Respiratory Rate Blood Pressure [Le ft Arm] Pulse Oximetry Oxygen Delivery Me thod Oxygen Flow Rate 15 Fraction of Inspir ed Oxygen 25 Labs Labs: Laboratory Results - last 24 hr 07/05/23 07/06/23 09:49 06:13 WBC 11.51 H 7.97 RBC 3.60 L 3.32 L Hgb 10.9 L 10.1 L Hct 34.2 31.3 L MCV 95 94 MCH 30 30 MCHC 32 32 RDW Coeff of Radha 13.6 13.4 Plt Count 601 H 503 H Neut % (Auto) 76.6 H 79.5 H Lymph % (Auto) 13.9 L 11.2 L [place] % (Auto) 8.0 7.9 Eos % (Auto) 1.0 1.0 Baso % (Auto) 0.3 0.3 Neut # (Auto) 8.80 H 6.30 Lymph # (Auto) 1.60 0.90 [place] # (Auto) 0.90 0.60 Eos # (Auto) 0.10 0.08 Baso # (Auto) 0.00 0.02 Abs Immat Gran (auto) 0.00 0.01 Imm/Tot Granulo (auto) 0.2 0.1 VBG pH 7.410 7.448 H VBG pCO2 57 H 48 VBG pO2 22.7 L 60.3 H VBG HCO3 36 H 33 H Sodium 137 136 Potassium 4.5 4.4 Chloride 96 99 Carbon Dioxide 37 H 33 H Anion Gap 4 L 4 L BUN 26 27 Creatinine 0.9 0.8 Estimated Creat Clear 38.36 38.36 Estimated GFR 63 73 Glucose 95 109 Calcium 8.9 8.4
--- NOTE | 2023-07-06 09:20 | CRLHL7_ITS ---
For Patients: As a result of the Century Cures Act, medical imaging exams and procedure reports are released immediately into your electronic medical record. You may view this report before your referring provider. If you have questions, please contact your health care provider. INDICATION: Pulmonary fibrosis, not otherwise described. TECHNIQUE: [facility] COMPARISON: 07/03/2023, 03/04/2023. Chest CT 07/03/2023.. FINDINGS: Patient positioning: The patient is not rotated. Shallow inspiration. Heart and mediastinum: Unchanged compared to 03/04/2023. Rightward deviation of the trachea is present as before. Lungs and pleural spaces: Diffuse bilateral reticular and ground-glass opacities, unchanged. Patchy bilateral lower lobe consolidation demonstrated to better advantage on the recent prior chest CT of 07/03/2023 is less well appreciated on this imaging modality. No significant pleural effusion. Bones and soft tissues: No acute findings. IMPRESSION: Diffuse bilateral nonspecific lung disease described above, without significant interval change. Acute pneumonia superimposed upon nonspecific bilateral interstitial lung disease is not excluded. Clinical correlation is recommended in this regard. Dictated by Yaniv Hahn MD @ 07/06/2023 10:18:13 AM (Electronically Signed)
[2023-07-06] MEDS: DOXYCYCLINE HYCLATE 100 MG PO ×2 (09:38→21:14)
[2023-07-06] MEDS: MAGNESIUM OXIDE 400 MG TABLET PO (09:39)
[2023-07-06] MEDS: METOPROLOL TARTRATE 25 MG TABLET PO ×2 (09:39→21:14)
[2023-07-06] MEDS: SODIUM CHLORIDE 0.9 % (FLUSH) 10 ML SYRINGE 5 ML IVF ×2 (09:40→21:14)
[2023-07-06] MEDS: cefTRIAXone 1 GM in 0.9 % SODIUM CHLORIDE Mini-bag 100 ML IVPB (09:44)
[2023-07-06 09:51] LABS: C Reactive Protein* 5.9 mg/dL (0.5-1.0)
--- NOTE | 2023-07-06 09:51 | RESP.RT ---
Patient sitting up in bed, appears comfortable, states so. Continues on HFNC FiO2 decreased during night to 25%, Decreased Flow this AM to 15 Lpm, Temperature 36 degrees (C) SaO2 87-90%. Patient does desaturate with Nursing maneuvers with long 10 minutes recover time, Fio2 is increased during these time, then return to previous setting when Patient has stabilized. Patient had good clear voice this AM with fair, loose nonproductive cough. BBS with crackles all berry, no wheeze or grunting noticed at this time. Will continue to wean oxygen as patient tolerates.
[2023-07-06 10:14] LABS: Free T4 Free Thyroxine* 1.83 ng/dL (0.70-1.85)
--- NOTE | 2023-07-06 12:05 | PC.NURSE ---
Called and spoke with patient's daughter, Pattie, who requested an update. Patient provided verbal consent for nurse to speak with Pattie. Dining Room Captain gave Pattie an update on patient condition and the day's progress. All of her questions were answered appropriately and she verbalized understanding. Reported she will be at the hospital later this afternoon to visit.
--- NOTE | 2023-07-06 14:06 | NUTR.NU ---
Nutrition Follow-up: RDN visited with patient whom reports meals have been good. She especially likes the fruit cups. She reports trying Ensure Enlive today and liked it. Experienced no diarrhea. Agreed to continue receiving supplements. Reported she had difficulty eating pancakes this morning related to her breathing. She had no concerns or questions at this time. New weight today of 126 lb 1oz. -4 lbs since 07/04/2023. No nutrition interventions at this time. Will continue to monitor.
--- NOTE | 2023-07-06 18:42 | PC.NURSE ---
Patient A&O throughout the day and continues to deny pain. Remains on HFNC with continuously fluctuating values. Patient currently at 22L 25% O2 SATS 90%. RT in patient room throughout the day adjusting HFNC & verbally discussed with nurse to continue adjusting values as needed. Patient unable to tolerate much activity with therapy today. Transfers from bed to commode/recliner SBA. Patient becomes hypoxic and desats to high 70s% with activity, takes about 5-10 minutes to recover. Continued education on pursed lip breathing & slowing down her breaths through her nose and out her mouth. Developed dry/barky cough today. Daughter in to visit this afternoon. Right FA PIV SL and clean, dry, intact. Fine crackles heard in bilateral bases. Very poor appetite today but she did tolerate increased intake from yesterday.
[2023-07-06] MEDS: MIRTAZAPINE 15 MG TABLET 7.5 MG PO (21:14)
[2023-07-06] MEDS: predniSONE 10 MG TABLET PO (21:15)
[2023-07-07] VITALS (20 sets, daily range): BP systolic 100–137; BP diastolic 63–85; PULSE 67–95; RESP 20–22; TEMP 35.8–36.6; O2SAT 85–92
[2023-07-07] MEDS: LEVOTHYROXINE 125 MCG TABLET PO (06:01)
--- NOTE | 2023-07-07 06:10 | PC.NURSE ---
End of shift report [id number]: Pleasant and cooperative with cares. Coarse crackles with diminished breath sounds in bilateral bases, patient denies any shortness of breath but life insurance underwriter observed episodes of tachypnea with exertions. Hi flow titrated throughout the night based on O2 sats. Patient requires encouragement to slow and steady breathing and practicing purse lip breathing. Transfers with minimal assist x 1 with pivot transfer onto commode, continent of bladder and bowel. Refused 0200 duoneb, patient states that she does not notice any change in breathing with nebulizer. Patient states that she slept well.
[2023-07-07 06:21] LABS: HCO3 VBG 34 mmol/L (21-28); PCO2 VBG 51 mmHG (40-50); pH VBG 7.428 (7.32-7.43)
[2023-07-07 07:28] LABS: Chloride* 98 mmol/L (96-114); Potassium* 4.7 mmol/L (3.6-5.1); Sodium* 136 mmol/L (135-149)
[2023-07-07 07:30] LABS: Creatinine* 0.7 mg/dL (0.5-1.5); Est. Creatinine Clearance* 38.36; Estimated Glomerular Filt Rate 86 ml/min
[2023-07-07 07:31] LABS: Anion Gap 6 mEq/L (7-15); Blood Urea Nitrogen* 24 mg/dL (7-30); Calcium* 8.6 mg/dL (8.4-10.6); Carbon Dioxide* 32 mmol/L (20-32); Glucose* 106 mg/dL (60-115)
[2023-07-07] MEDS: IPRAT-ALBUT 0.5-2.5 MG/3 ML NEB 1 NEB IH ×2 (09:10→14:02)
[2023-07-07] MEDS: 0.9 % SODIUM CHLORIDE 250 ml IV (09:12)
[2023-07-07] MEDS: cefTRIAXone 1 GM in 0.9 % SODIUM CHLORIDE Mini-bag 100 ML IVPB (09:13)
[2023-07-07] MEDS: DOXYCYCLINE HYCLATE 100 MG PO ×2 (09:14→20:37)
[2023-07-07] MEDS: METOPROLOL TARTRATE 25 MG TABLET PO ×2 (09:14→20:37)
[2023-07-07] MEDS: MAGNESIUM OXIDE 400 MG TABLET PO (09:14)
[2023-07-07] MEDS: SODIUM CHLORIDE 0.9 % (FLUSH) 10 ML SYRINGE 5 ML IVF ×2 (09:15→20:38)
--- NOTE | 2023-07-07 09:53 | P.IMPN_ITS ---
Progress Note: A&P Assessment and plan (1) Acute on chronic respiratory failure with hypoxemia: Problem details: - cause is severe pulmonary fibrosis plus a new respiratory insult. - appears to be more infectious than congested in nature. -she continues on oral doxycycline and IV ceftriaxone. s/p one dose of lasix 40mg on 07/04 -she continues on a mild increase in her home prednisone dosing which was 5 mg and is now been 10 mg since admission -she continues on high-flow nasal cannula oxygen FiO2 25%, 20 L. goal is 88-90%. She previously was not on home O2. -CRP downtrending. procal was normal on admission. BNP was elevated at >3000, but weight is down. I believe her to be evulomeic Status: Acute (2) Pulmonary fibrosis: Problem details: - continue with oxygen supplementation as instituted in the hospital. Likely will need home oxygen. - wean from high flow continues, no longer retaining CO2 Status: Acute (3) Pneumonia: Problem details: - I suspect patient has a superimposed pneumonia, community-acquired. - initiate ceftriaxone 1 g IV Q 24 (first dose 07/03) and oral doxycycline 100 mg twice daily. Status: Acute (4) Sinus tachycardia: Problem details: improved with metoprolol Status: Acute (5) Hypothyroidism: Problem details: - continue with levothyroxine supplementation -TSH >4, but free T4 normal. Status: Acute (6) Chronic cough: Problem details: - initiate hydroxyzine 25 mg q.4 hours p.r.n.. Status: Acute Subjective Date Seen: 07/07/23 Interval history: Daily Progress Note - Hospital Medicine Day #: 5 CC: severe pulmonary fibrosis, superimposed community acquired pna OVERNIGHT UPDATES FROM STAFF & MED, LAB, IMAGING UPDATES -comfortable is bed, mild resp distress, insightful - asking good questions. not breathless chatting with me. -reviewed her CXR yesterday and CTA from admission again. conferenced with RT on goals. Afebrile overnight. Blood pressure 137 systolic to 100 systolic over 60s to 70s diastolic. Heart rate is in the 80s to 90s. Respiratory rate 20 to 22. Satting 90% on 20 L and 25% FiO2. Weight is stable at 57.4 kilos CBC not recheck today. Normal white blood cell count yesterday. Blood gas this morning shows a normal pH. Just a very mild elevation in her CO2 51. Electrolytes, renal function all normal. There were no microbiology studies done. Reviewed her echo report from admission, done on 07/04: EF of 55-60%. Normal global systolic function. Right ventricle function is normal. Noted aortic valve is sclerotic without obvious aortic stenosis or insufficiency. Objective: alert. mild resp distress. talking in full sentences. Vitals: see above Lungs: Clear. Cardiac: S1S2. holosystolic murmur. Disposition/Potential discharge - Likely to return to previous living situation. Today I spent 50minutes seeing the patient, reviewing Expanse and EPIC notes/diagnostics, discussing the care plan with our care time that includes social work, PT/OT, pharmacy, RT, residential and documenting my impressions and plan in the medical record. Exam Const: Vital Signs, click to edit/add: Vital Signs - 24 hr 07/06/23 11:00 07/06/23 11:00 07/06/23 12:10 Temperature 98.4 F Pulse Rate Pulse Rate [Pulse Oximeter] 87 Respiratory Rate 20 Blood Pressure [Le ft Arm] 120/70 Pulse Oximetry 89 Oxygen Delivery Me thod High Flow Nasal Ca nnula Oxygen Flow Rate 15 Fraction of Inspir ed Oxygen 21 21 25 07/06/23 15:00 07/06/23 15:00 07/06/23 15:00 Temperature Pulse Rate 109 H Pulse Rate [Pulse Oximeter] Respiratory Rate Blood Pressure [Le ft Arm] Pulse Oximetry 87 L Oxygen Delivery Me thod Oxygen Flow Rate Fraction of Inspir ed Oxygen 25 07/06/23 15:00 07/06/23 15:15 07/06/23 15:29 Temperature 98.7 F Pulse Rate 99 Pulse Rate [Pulse Oximeter] 121 H Respiratory Rate 22 Blood Pressure [Le ft Arm] 119/61 Pulse Oximetry 85 L Oxygen Delivery Me thod High Flow Nasal Ca nnula Oxygen Flow Rate 22 22 Fraction of Inspir ed Oxygen 25 25 07/06/23 16:13 07/06/23 18:00 07/06/23 18:10 Temperature Pulse Rate Pulse Rate [Pulse Oximeter] Respiratory Rate Blood Pressure [Le ft Arm] Pulse Oximetry Oxygen Delivery Me thod Oxygen Flow Rate Fraction of Inspir ed Oxygen 25 28 28 07/06/23 18:47 07/06/23 19:00 07/06/23 20:00 Temperature 97.7 F Pulse Rate Pulse Rate [Pulse Oximeter] 84 Respiratory Rate 22 Blood Pressure [Le ft Arm] 127/73 Pulse Oximetry 88 Oxygen Delivery Me thod High Flow Nasal Ca nnula Oxygen Flow Rate 22 Fraction of Inspir ed Oxygen 25 25 25 07/06/23 22:00 07/06/23 23:00 07/06/23 23:00 Temperature Pulse Rate Pulse Rate [Pulse Oximeter] 77 Respiratory Rate Blood Pressure [Le ft Arm] Pulse Oximetry 88 Oxygen Delivery Me thod Oxygen Flow Rate Fraction of Inspir ed Oxygen 25 07/06/23 23:00 07/06/23 23:00 07/07/23 00:00 Temperature 97.8 F Pulse Rate 73 Pulse Rate [Pulse Oximeter] 77 Respiratory Rate 18 Blood Pressure [Le ft Arm] 118/77 Pulse Oximetry 92 Oxygen Delivery Me thod High Flow Nasal Ca nnula Oxygen Flow Rate 22 Fraction of Inspir ed Oxygen 25 27 07/07/23 02:00 07/07/23 03:00 07/07/23 04:00 Temperature 96.5 F L Pulse Rate Pulse Rate [Pulse Oximeter] 67 Respiratory Rate 20 Blood Pressure [Le ft Arm] 137/66 Pulse Oximetry 91 Oxygen Delivery Me thod Room Air Oxygen Flow Rate Fraction of Inspir ed Oxygen 26 26 07/07/23 06:00 07/07/23 07:00 07/07/23 08:05 Temperature 98 F Pulse Rate 87 Pulse Rate [Pulse Oximeter] 92 Respiratory Rate 22 Blood Pressure [Le ft Arm] 100/66 Pulse Oximetry 90 Oxygen Delivery Me thod High Flow Nasal Ca nnula Oxygen Flow Rate 20 Fraction of Inspir ed Oxygen 26 26 07/07/23 08:06 07/07/23 08:43 07/07/23 08:43 Temperature Pulse Rate Pulse Rate [Pulse Oximeter] 92 Respiratory Rate 22 Blood Pressure [Le ft Arm] Pulse Oximetry 90 Oxygen Delivery Me thod Oxygen Flow Rate Fraction of Inspir ed Oxygen 22 07/07/23 09:34 Temperature Pulse Rate Pulse Rate [Pulse Oximeter] Respiratory Rate Blood Pressure [Le ft Arm] Pulse Oximetry Oxygen Delivery Me thod Oxygen Flow Rate Fraction of Inspir ed Oxygen 25 Labs Labs: Laboratory Results - last 24 hr 07/06/23 07/07/23 06:13 05:53 VBG pH 7.428 VBG pCO2 51 H VBG pO2 44.0 VBG HCO3 34 H Sodium 136 Potassium 4.7 Chloride 98 Carbon Dioxide 32 Anion Gap 6 L BUN 24 Creatinine 0.7 Estimated Creat Clear 38.36 Estimated GFR 86 Glucose 106 Calcium 8.6 C-Reactive Protein 5.9 H Free T4 1.83
--- NOTE | 2023-07-07 18:02 | PC.NURSE ---
Patient A&O and makes needs known throughout this shift. VSS with exception to ongoing O2 needs. Maintaining on 20L / 25% on HFNC SATS reading from 87-93% at rest. Patient continues to desat down to mid 70s% with activity but recovers within 5 minutes. Poor appetite ongoing, eating small amounts. Goal is to ambulate patient to the bathroom with the oxymizer mask rather than bedside commode with HFNC. PIV right FA clean, dry, intact. SBA to bedside commode w/ use of gait belt. TELE continues to read sinus arrhythmia. IV Rocephin last dose completed today.
[2023-07-07] MEDS: predniSONE 10 MG TABLET PO (20:37)
[2023-07-07] MEDS: MIRTAZAPINE 15 MG TABLET 7.5 MG PO (20:37)
[2023-07-08] VITALS (16 sets, daily range): BP systolic 123–141; BP diastolic 58–96; PULSE 67–88; RESP 20–22; TEMP 36.3–37.1; O2SAT 88–95
[2023-07-08] MEDS: LEVOTHYROXINE 125 MCG TABLET PO (06:56)
--- NOTE | 2023-07-08 06:59 | PC.NURSE ---
Shift note 23-: Pt reports resting well, remains on HFNC 20L and 25%FiO2, oxygen saturations upper 80's to low 90's, pt has desaturations when up SBA to the bedside commode but recovers well once back in bed. Afebrile. Denies pain, N/V, CP. SOB with exertion.
[2023-07-08 07:08] LABS: Chloride* 95 mmol/L (96-114); Sodium* 134 mmol/L (135-149)
[2023-07-08 07:09] LABS: Potassium* 4.8 mmol/L (3.6-5.1)
[2023-07-08 07:11] LABS: Creatinine* 0.8 mg/dL (0.5-1.5); Est. Creatinine Clearance* 38.36; Estimated Glomerular Filt Rate 73 ml/min
[2023-07-08 07:12] LABS: Anion Gap 5 mEq/L (7-15); Blood Urea Nitrogen* 19 mg/dL (7-30); Carbon Dioxide* 34 mmol/L (20-32); Glucose* 106 mg/dL (60-115)
[2023-07-08 07:13] LABS: Calcium* 8.8 mg/dL (8.4-10.6)
[2023-07-08 07:50] LABS: HCO3 VBG 34 mmol/L (21-28); PCO2 VBG 55 mmHG (40-50); PO2 VBG 20.6 mmHG (25-47); pH VBG 7.401 (7.32-7.43)
--- NOTE | 2023-07-08 08:03 | P.IMPN_ITS ---
Progress Note: A&P Assessment and plan (1) Acute on chronic respiratory failure with hypoxemia: Problem details: - cause is severe pulmonary fibrosis plus a new respiratory insult. - appears to be more infectious than congested in nature. 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 goal is 88-90%. She previously was not on home O2. -CRP down trending. procal was normal on admission. BNP was elevated at >3000, but weight is down. I believe her to be evulomeic Status: Acute (2) Pulmonary fibrosis: Problem details: - continue with oxygen supplementation as instituted in the hospital. Likely will need home oxygen. - wean from high flow continues, no longer retaining CO2 - goal is have a baseline oxygen support at rest, pre-oxygenate 2-4 mins prior to activity, do her movements and then recover. RT to assist in home oxygen prescription with this plan - this may represent her new normal and introducing pallative care and/or hospice as appropriate. Status: Acute (3) Pneumonia: Problem details: - I suspect patient has a superimposed pneumonia, community-acquired. - initiate ceftriaxone 1 g IV Q 24 (first dose 07/03, last dose 07/07) and oral doxycycline 100 mg twice daily 07/03-07/10. Status: Acute (4) Sinus tachycardia: Problem details: improved with metoprolol Status: Acute (5) Hypothyroidism: Problem details: - continue with levothyroxine supplementation -TSH >4, but free T4 normal. Status: Acute (6) Chronic cough: Problem details: - initiate hydroxyzine 25 mg q.4 hours p.r.n.. Status: Acute Subjective Date Seen: 07/08/23 Interval history: Daily Progress Note - Hospital Medicine Day #: 6 CC: severe pulmonary fibrosis, superimposed community acquired pna OVERNIGHT UPDATES FROM STAFF & MED, LAB, IMAGING UPDATES -slow improvement noted. was able to march in place with PT this morning. feels constipated and would like some help with that. -reviewed her CXR yesterday and CTA from admission again. conferenced with RT on goals. Afebrile 141/81, 123/75 Pulse rate 76 Respiratory rate 20 to 22 at rest Sats 92% on high-flow 20 L, 25% Weight stable CBC has not been checked since 07/06 PH 7.4, pCO2 elevated 55 but this is stable. Sodium dipped to 134 but has been normal previously. CRP continues to decline There were no microbiology studies done. Reviewed her echo report from admission, done on 07/04: EF of 55-60%. Normal global systolic function. Right ventricle function is normal. Noted aortic valve is sclerotic without obvious aortic stenosis or insufficiency. Objective: alert. mild resp distress. talking in full sentences. Vitals: see above Lungs: Clear. Cardiac: S1S2. holosystolic murmur. Disposition/Potential discharge - Likely to return to previous living situation. Today I spent 50minutes seeing the patient, reviewing Expanse and EPIC note s/diagnostics, discussing the care plan with our care time that includes social work, PT/OT, pharmacy, RT, group home and documenting my impressions and plan in the medical record. Exam Const: Vital Signs, click to edit/add: Vital Signs - 24 hr 07/07/23 08:05 07/07/23 08:06 07/07/23 08:43 Temperature 98 F Pulse Rate Pulse Rate [Pulse Oximeter] 92 Respiratory Rate 22 Blood Pressure [Le ft Arm] 100/66 Pulse Oximetry 90 90 Oxygen Delivery Me thod High Flow Nasal Ca nnula Oxygen Flow Rate 20 Fraction of Inspir ed Oxygen 26 22 07/07/23 08:43 07/07/23 09:34 07/07/23 09:55 Temperature Pulse Rate Pulse Rate [Pulse Oximeter] 92 Respiratory Rate 22 Blood Pressure [Le ft Arm] Pulse Oximetry Oxygen Delivery Me thod Oxygen Flow Rate 20 Fraction of Inspir ed Oxygen 25 25 07/07/23 12:05 07/07/23 12:05 07/07/23 14:00 Temperature 98 F Pulse Rate Pulse Rate [Pulse Oximeter] 92 Respiratory Rate 20 Blood Pressure [Le ft Arm] 108/85 Pulse Oximetry 87 L Oxygen Delivery Me thod High Flow Nasal Ca nnula Oxygen Flow Rate 20 Fraction of Inspir ed Oxygen 25 25 25 07/07/23 15:00 07/07/23 15:00 07/07/23 15:46 Temperature 97.1 F L Pulse Rate Pulse Rate [Pulse Oximeter] 95 95 Respiratory Rate 22 22 Blood Pressure [Le ft Arm] 114/79 Pulse Oximetry 90 87 L Oxygen Delivery Me thod High Flow Nasal Ca nnula Oxygen Flow Rate 20 Fraction of Inspir ed Oxygen 25 07/07/23 15:47 07/07/23 17:32 07/07/23 17:35 Temperature Pulse Rate 90 Pulse Rate [Pulse Oximeter] Respiratory Rate Blood Pressure [Le ft Arm] Pulse Oximetry Oxygen Delivery Me thod Oxygen Flow Rate Fraction of Inspir ed Oxygen 25 25 07/07/23 19:43 07/07/23 21:15 07/07/23 23:00 Temperature 97.0 F L Pulse Rate Pulse Rate [Pulse Oximeter] 87 Respiratory Rate 20 Blood Pressure [Le ft Arm] 122/63 Pulse Oximetry 87 L 90 Oxygen Delivery Me thod High Flow Nasal Ca nnula Oxygen Flow Rate 20 Fraction of Inspir ed Oxygen 25 25 07/07/23 23:00 07/07/23 23:00 07/07/23 23:00 Temperature 97.2 F L Pulse Rate Pulse Rate [Pulse Oximeter] 72 Respiratory Rate 20 22 Blood Pressure [Le ft Arm] 107/65 Pulse Oximetry 90 Oxygen Delivery Me thod High Flow Nasal Ca nnula Oxygen Flow Rate 20 Fraction of Inspir ed Oxygen 25 25 07/07/23 23:00 07/08/23 01:00 07/08/23 03:00 Temperature Pulse Rate 90 Pulse Rate [Pulse Oximeter] Respiratory Rate Blood Pressure [Le ft Arm] Pulse Oximetry Oxygen Delivery Me thod Oxygen Flow Rate Fraction of Inspir ed Oxygen 25 25 07/08/23 03:00 07/08/23 05:00 07/08/23 07:00 Temperature 97.4 F L Pulse Rate 78 Pulse Rate [Pulse Oximeter] 78 Respiratory Rate 20 Blood Pressure [Le ft Arm] Pulse Oximetry 89 Oxygen Delivery Me thod High Flow Nasal Ca nnula Oxygen Flow Rate 20 Fraction of Inspir ed Oxygen 25 25 07/08/23 07:00 Temperature Pulse Rate Pulse Rate [Pulse Oximeter] Respiratory Rate Blood Pressure [Le ft Arm] Pulse Oximetry 91 Oxygen Delivery Me thod Oxygen Flow Rate Fraction of Inspir ed Oxygen Labs Labs: Laboratory Results - last 24 hr 07/08/23 06:22 VBG pH 7.401 VBG pCO2 55 H VBG pO2 20.6 L VBG HCO3 34 H Sodium 134 L Potassium 4.8 Chloride 95 L Carbon Dioxide 34 H Anion Gap 5 L BUN 19 Creatinine 0.8 Estimated Creat Clear 38.36 Estimated GFR 73 Glucose 106 Lactate 1.0 Calcium 8.8 C-Reactive Protein 3.0 H
[2023-07-08] MEDS: SODIUM CHLORIDE 0.9 % (FLUSH) 10 ML SYRINGE 5 ML IVF ×2 (08:55→20:11)
[2023-07-08] MEDS: DOXYCYCLINE HYCLATE 100 MG PO ×2 (08:55→20:11)
[2023-07-08] MEDS: IPRAT-ALBUT 0.5-2.5 MG/3 ML NEB 1 NEB IH ×3 (08:55→19:53)
[2023-07-08] MEDS: METOPROLOL TARTRATE 25 MG TABLET PO ×2 (08:55→20:10)
[2023-07-08] MEDS: predniSONE 20 MG TABLET 60 MG PO (08:56)
[2023-07-08] MEDS: MAGNESIUM OXIDE 400 MG TABLET PO (08:56)
[2023-07-08] MEDS: SENNOSIDES 1 TAB TABLET 2 TAB PO (13:13)
--- NOTE | 2023-07-08 13:29 | PC.NURSE ---
Addendum entered by Adelaida Nova RN 07/08/23 14:08: Pt to use oxymask at 10 Litres nasal cannula with activity and position changes. Original Note: Please see notations r/to OT, PT, RT and Dr. Macias. Pt continues on hiflow oxygen. She needs preoxygenation up to 100% for 5 minutes prior to activity. Please see eMar for medications provided on day shift. Appetite slightly better per pt report. No dysphagia with meds. Droplet precautions continue. Report will be provided to oncoming shift.
--- NOTE | 2023-07-08 19:36 | RESP.RT ---
Patient has had limited activity today. She has spent most of the day up in bed on .25HFNC @ 20Lpm SATing 88-90%. She has desaturated quickly with talking and physical activity during the past few days dropping into the upper 70s. Hyperoxygenation worked well today. She was able to sit at the side of the bed on 10L oxymask SATing 100%. She proceeded to stand and SATs remained 98-100%. She did have an increased dizzy spell and sat back down. Blood pressure and oxygenation was normal, and she discribed the dizzyness coming more from blurred side vision and not eating much over the past 2 days. Later tonight she stood without assistance and walked to the chair on 100% FiO2 and SATs remained at 98%. She sat up in the chair for 2 hours keeping SATs at 90% on .25FiO2. The goal is for tomorrow to have her sit at the edge of the bed and get up to the chair several times on being hyperoxygenated prior to this activity and finding out how much supplemental O2 she will need going home to keep SATs 88-90% with activity. She expressed that she wants to try to walk to the bathroom tomorrow knowing that her SATs are remaining above normal with the current supplemental O2.
[2023-07-08] MEDS: MIRTAZAPINE 15 MG TABLET 7.5 MG PO (20:10)
[2023-07-08] MEDS: SENNOSIDES/DOCUSATE TABLET 1 TAB PO (20:11)
--- NOTE | 2023-07-08 22:45 | PC.NURSE ---
15-23: pleasant and cooperative. Uses commode at bedside. 1 x small BM, pt stated she still feels constipated, BID senna. Dry cough, pt expresses a tickle in her throat, cough drops at bedside. ? Working closely with RT to assess at home O2 needs.?HiFlow 20L/21-25% FiO2, titrating between 21-25% FiO2 as needed. When asleep pts O2 sats dropped to 78% on 20L/21% FiO2, titrated to 20L/25% FiO2. 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 Pt aware RT wants her up every hour. Attempted to get pt to walk to door in , pt declined and said she was tired. Educated pt on assessing O2 needs for home oxygen use, pt aware. ? Pt declined dinner tray, pt did eat 2 cups of ice cream (stated vanilla is better than chocolate). Pt declined other supplements, stated the ensures make her feel too full, encouraged other supplements/snacks, pt declined. ?
[2023-07-09] VITALS (20 sets, daily range): BP systolic 119–140; BP diastolic 62–103; PULSE 71–91; RESP 22–36; TEMP 36.2–36.6; O2SAT 88–98
[2023-07-09] MEDS: IPRAT-ALBUT 0.5-2.5 MG/3 ML NEB 1 NEB IH ×4 (02:17→19:46)
--- NOTE | 2023-07-09 05:49 | PC.NURSE ---
Shift note: PT has been sleeping well. Vitally stable, denied any pain. Ambulate with A1, walker and GB to bedside commode. Alert and oriented. Denied SOB. Pt has been on Hyflo with 20L and 25% throughout the night.NSR recorded for telemetry. reading.
[2023-07-09] MEDS: LEVOTHYROXINE 125 MCG TABLET PO (06:42)
[2023-07-09 07:05] LABS: Hemoglobin* 10.4 gm/dL (12.0-16.0); Mean Corpuscular HGB Conc 33 gm/dL (32-36); Mean Corpuscular Hemoglobin 30 pg (26-34); Mean Corpuscular Volume 93 fL (80-100); Platelet Count* 483 K/uL (140-440); Red Blood Count 3.44 m/uL (4.00-5.20); White Blood Count* 9.29 K/uL (4.50-11.00)
[2023-07-09 07:23] LABS: Chloride* 96 mmol/L (96-114); Slide Review Reflex No
[2023-07-09 07:24] LABS: Potassium* 4.2 mmol/L (3.6-5.1); Sodium* 135 mmol/L (135-149)
[2023-07-09 07:26] LABS: Anion Gap 5 mEq/L (7-15); Carbon Dioxide* 34 mmol/L (20-32); Creatinine* 0.8 mg/dL (0.5-1.5); Est. Creatinine Clearance* 38.36; Estimated Glomerular Filt Rate 73 ml/min
[2023-07-09 07:27] LABS: Blood Urea Nitrogen* 20 mg/dL (7-30); Calcium* 8.9 mg/dL (8.4-10.6); Glucose* 89 mg/dL (60-115)
[2023-07-09] MEDS: DOXYCYCLINE HYCLATE 100 MG PO ×2 (09:25→20:56)
[2023-07-09] MEDS: predniSONE 20 MG TABLET 60 MG PO (09:25)
[2023-07-09] MEDS: METOPROLOL TARTRATE 25 MG TABLET PO ×2 (09:26→20:56)
[2023-07-09] MEDS: MAGNESIUM OXIDE 400 MG TABLET PO (09:26)
[2023-07-09] MEDS: SENNOSIDES/DOCUSATE TABLET 1 TAB PO ×2 (09:26→20:57)
[2023-07-09] MEDS: SODIUM CHLORIDE 0.9 % (FLUSH) 10 ML SYRINGE 5 ML IVF ×2 (09:28→20:57)
--- NOTE | 2023-07-09 09:47 | PM.IMPN1 ---
Progress Note: A&P Assessment and plan (1) Acute on chronic respiratory failure with hypoxemia: Problem details: - cause is severe pulmonary fibrosis plus a new respiratory insult. - appears to be more infectious than congested in nature. - received 5 doses of 1-gram IV Rocephin and is completing 7 days of BID oral Doxy (last dose is 1112 am) - CRP down trending. procal was normal on admission. BNP was elevated at >3000, but weight is down. 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 goal is 88-90%. She previously was not on home O2. Will attempt wean to concentrated O2 via NC today 07/09. Status: Acute (2) Pulmonary fibrosis: Problem details: - continue with oxygen supplementation as instituted in the hospital. Likely will need home oxygen. - wean from high flow continues, no longer retaining CO2 - goal is have a baseline oxygen support at rest, pre-oxygenate 2-4 mins prior to activity, do her movements and then recover. RT to assist in home oxygen prescription with this plan - this may represent her new normal and introducing pallative care and/or hospice as appropriate. - 07/09 weaning to a trial of concentrated oxygen via NC today. Trying to step up activity slightly. Continue to space activities out to allow for pulmonary recovery. Status: Acute (3) Pneumonia: Problem details: - Suspected superimposed pneumonia, community-acquired. - ceftriaxone 1 g IV Q 24 (first dose 07/03, last dose 07/07) and oral doxycycline 100 mg twice daily 07/03-07/10. Status: Acute (4) Sinus tachycardia: Problem details: improved with metoprolol Status: Acute (5) Hypothyroidism: Problem details: - continue with levothyroxine supplementation - TSH >4, but free T4 normal. Status: Chronic (6) Chronic cough: Problem details: - initiate hydroxyzine 25 mg q.4 hours p.r.n.. Status: Chronic (7) Anemia: Problem details: - Normocytic. Stable. Check iron studies, B12, folate. Status: Acute Subjective Time Seen by Provider: 08:00 Date Seen: 07/09/23 Interval history: Queenie feels hungry today, whereas she did not yesterday. She notes poor appetite and weight loss over the last few months. She tells me she is very motivated to return home and hopes to be able to do so by Tuesday. We discussed that it may take more time than that since she is still on high-flow this morning. Discussed attempting to wean off high-flow for the daytime today and doing a little more activity if she is able. She had a bowel movement and no longer feels constipated. She tells me that she was gardening and mowing her lawn over the summer, but sometime in March she started to feel more short of breath and this gradually got worse and worse. Over the last few weeks she has just been taking her time doing things. She also says that she wears shoes all the time at home except look at night in bed and would like to do the same here. She spoke about how she had not wanted her family to see her like this, but is now rethinking that decision and is going to allow them to visit today. She did not want me to call anyone with an update. Exam Narrative: Exam Narrative: General: No acute distress. Talking in full sentences. Awake, alert, oriented x3. No pallor. No jaundice. Oropharynx: Clear. Mucous membranes moist. Cardiovascular: Regular rate and rhythm. 2/6 holosystolic murmur. Respiratory: Rhonchi throughout. Abdomen: Bowel sounds present. Soft, nondistended, nontender. Extremities: No pedal edema. Const: Vital Signs, click to edit/add: Vital Signs - 24 hr 07/08/23 11:00 07/08/23 11:00 07/08/23 13:00 Temperature 98.8 F Pulse Rate Pulse Rate [Left A pical] 76 Pulse Rate [Pulse Oximeter] 76 Respiratory Rate 20 Blood Pressure [Le ft Arm] 141/81 H Pulse Oximetry 92 Oxygen Delivery Me thod High Flow Nasal Ca nnula Oxygen Flow Rate Fraction of Inspir ed Oxygen 25 25 07/08/23 15:00 07/08/23 15:09 07/08/23 16:00 Temperature Pulse Rate 85 Pulse Rate [Left A pical] Pulse Rate [Pulse Oximeter] Respiratory Rate 22 Blood Pressure [Le ft Arm] Pulse Oximetry 92 Oxygen Delivery Me thod Oxygen Flow Rate Fraction of Inspir ed Oxygen 07/08/23 16:00 07/08/23 16:00 07/08/23 18:00 Temperature 98.1 F Pulse Rate Pulse Rate [Left A pical] Pulse Rate [Pulse Oximeter] 83 Respiratory Rate 20 Blood Pressure [Le ft Arm] 134/96 H Pulse Oximetry 89 Oxygen Delivery Me thod High Flow Nasal Ca nnula Oxygen Flow Rate 20 Fraction of Inspir ed Oxygen 25 25 21 07/08/23 19:50 07/08/23 20:00 07/08/23 22:00 Temperature 98.2 F Pulse Rate Pulse Rate [Left A pical] Pulse Rate [Pulse Oximeter] 85 Respiratory Rate 22 Blood Pressure [Le ft Arm] 126/58 L Pulse Oximetry 88 Oxygen Delivery Me thod High Flow Nasal Ca nnula Oxygen Flow Rate 20 Fraction of Inspir ed Oxygen 21 21 25 07/08/23 23:00 07/08/23 23:00 07/08/23 23:00 Temperature Pulse Rate 67 Pulse Rate [Left A pical] Pulse Rate [Pulse Oximeter] 67 Respiratory Rate 22 Blood Pressure [Le ft Arm] Pulse Oximetry 95 Oxygen Delivery Me thod Oxygen Flow Rate Fraction of Inspir ed Oxygen 07/08/23 23:00 07/09/23 00:00 07/09/23 02:00 Temperature 97.8 F Pulse Rate Pulse Rate [Left A pical] Pulse Rate [Pulse Oximeter] 67 Respiratory Rate 22 Blood Pressure [Le ft Arm] 135/65 Pulse Oximetry 95 Oxygen Delivery Me thod High Flow Nasal Ca nnula Oxygen Flow Rate 20 Fraction of Inspir ed Oxygen 25 25 25 07/09/23 03:00 07/09/23 04:00 07/09/23 05:43 Temperature 97.8 F Pulse Rate Pulse Rate [Left A pical] Pulse Rate [Pulse Oximeter] 78 Respiratory Rate 22 Blood Pressure [Le ft Arm] 119/103 H Pulse Oximetry 91 Oxygen Delivery Me thod High Flow Nasal Ca nnula Oxygen Flow Rate 20 Fraction of Inspir ed Oxygen 25 25 25 07/09/23 07:00 07/09/23 07:00 07/09/23 08:00 Temperature 97.4 F L Pulse Rate Pulse Rate [Left A pical] Pulse Rate [Pulse Oximeter] 91 Respiratory Rate 28 H Blood Pressure [Le ft Arm] 136/72 Pulse Oximetry 90 88 Oxygen Delivery Me thod High Flow Nasal Ca nnula Oxygen Flow Rate 20 Fraction of Inspir ed Oxygen 25 25 Labs Labs: Laboratory Results - last 24 hr 07/09/23 06:04 WBC 9.29 RBC 3.44 L Hgb 10.4 L Hct 32.0 L MCV 93 MCH 30 MCHC 33 Plt Count 483 H Sodium 135 Potassium 4.2 Chloride 96 Carbon Dioxide 34 H Anion Gap 5 L BUN 20 Creatinine 0.8 Estimated Creat Clear 38.36 Estimated GFR 73 Glucose 89 Calcium 8.9
--- NOTE | 2023-07-09 10:42 | RESP.RT ---
Changed pt to oxymizer. The oxymizer is designed to reduce the flow of oxygen needed, but not reduce the amount of oxygen to the patient. Using variable flow rates this AM, but never higher than 6L Keeping SPO2 between 90-98% Tolerating well, she is very comfortable, stable and regular respiratory rate of 22. Using 3 L in chair. The oxymizer does provide humidification.
[2023-07-09] MEDS: PSYLLIUM HUSK (WITH SUGAR) 12 GM PACKET PO (11:04)
[2023-07-09] MEDS: BUDESONIDE 0.5 MG/2ML NEB 1 MG NEB ×2 (11:18→20:56)
--- NOTE | 2023-07-09 19:19 | PC.NURSE ---
Patient pleasant, alert and oriented. Ambulated with therapy this morning. Assist of one to bedside commode. Per RT patient was taken off of high flow O2 this morning and placed on O2 at 3 LPM?via oximizer. Patient reported having a dizzy spell that lasted about 14 seconds at approximately 1410. Patient was lying in bed at the time. Respirations were 36; all other VSS. Denied any SOB, nausea, numbness, tingling or pain. No speech or vision changes. Upper and lower extremity strength strong, pupils equal and reactive. She reported that she was just very tired and had not napped. ?Dr Dutton and Dr Mcnulty updated. Lookback at telemetry showed no changes at time of episode. Per Dr Dutton patient was placed back on high flow O2 at previous settings. Patient denied any further?dizziness episodes.
[2023-07-09] MEDS: MIRTAZAPINE 15 MG TABLET 7.5 MG PO (20:56)
[2023-07-10] VITALS (15 sets, daily range): BP systolic 116–134; BP diastolic 56–76; PULSE 68–97; RESP 20–32; TEMP 36.2–37.1; O2SAT 89–98
--- NOTE | 2023-07-10 06:03 | PC.NURSE ---
Shift note: Pt is doing well this morning. Alert and oriented, denied SOB. Pt has been on Hyflo throughout the shift with the flow rate of 20L and 25%. Vitally stable. Pt had adequate sleep. Droplet precaution observed.
[2023-07-10] MEDS: LEVOTHYROXINE 125 MCG TABLET PO (06:45)
[2023-07-10 07:18] LABS: Chloride* 98 mmol/L (96-114); Potassium* 4.3 mmol/L (3.6-5.1); Sodium* 135 mmol/L (135-149)
[2023-07-10 07:21] LABS: Anion Gap 5 mEq/L (7-15); Blood Urea Nitrogen* 21 mg/dL (7-30); Carbon Dioxide* 32 mmol/L (20-32); Creatinine* 0.8 mg/dL (0.5-1.5); Est. Creatinine Clearance* 38.36; Estimated Glomerular Filt Rate 73 ml/min
[2023-07-10 07:22] LABS: Calcium* 8.9 mg/dL (8.4-10.6); Glucose* 99 mg/dL (60-115)
[2023-07-10] MEDS: predniSONE 20 MG TABLET 60 MG PO (07:38)
[2023-07-10] MEDS: IPRAT-ALBUT 0.5-2.5 MG/3 ML NEB 1 NEB IH ×3 (07:38→19:16)
[2023-07-10 07:39] LABS: Iron* 22 ug/dL (37-170)
[2023-07-10 07:48] LABS: Percent Iron Saturation 7 % (20-50); Total Iron Binding Capacity 343 ug/dL (265-497)
[2023-07-10 08:05] LABS: Vitamin B12* 471 pg/mL (243-894)
--- NOTE | 2023-07-10 08:59 | RESP.RT ---
Patient continues on HFNC, Flow decreased to 18 Lpm, FiO2 25%, Temperature 36 degrees (C). Wearing Oxymizer at 1 Lpm for OT/PT with SaO2 >95%. BBS with fine crackles, greater in both bases, No wheeze noted.
[2023-07-10] MEDS: MAGNESIUM OXIDE 400 MG TABLET PO (09:23)
[2023-07-10] MEDS: SENNOSIDES/DOCUSATE TABLET 1 TAB PO ×2 (09:23→20:16)
[2023-07-10] MEDS: METOPROLOL TARTRATE 25 MG TABLET PO ×2 (09:23→20:16)
[2023-07-10] MEDS: DOXYCYCLINE HYCLATE 100 MG PO (09:24)
[2023-07-10] MEDS: PSYLLIUM HUSK (WITH SUGAR) 12 GM PACKET PO (09:46)
[2023-07-10] MEDS: BUDESONIDE 0.5 MG/2ML NEB 1 MG NEB ×2 (09:47→20:23)
[2023-07-10] MEDS: SODIUM CHLORIDE 0.9 % (FLUSH) 10 ML SYRINGE 5 ML IVF ×2 (09:48→20:16)
--- NOTE | 2023-07-10 14:07 | RESP.RT ---
Patient doing well on Oxymizer maintaining SaO2 .88%.
--- NOTE | 2023-07-10 16:10 | PM.IMPN1 ---
Progress Note: A&P Assessment and plan (1) Acute on chronic respiratory failure with hypoxemia: Problem details: - cause is severe pulmonary fibrosis plus a new respiratory insult. - appears to be more infectious than congested in nature. - received 5 doses of 1-gram IV Rocephin and is completing 7 days of BID oral Doxy (last dose is 11 am) - CRP down trending. procal was normal on admission. BNP was elevated at >3000, but weight is down. 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 goal is 88-90%. She previously was not on home O2. Will attempt wean to concentrated O2 via NC today 07/09. - 07/10 she is improving and able to be on Oxymizer for several hours a time in a day. Still requiring high-flow at night. Continue prednisone daily and she will need a long taper of several weeks to months. If she continues to make improvements it is possible she might be able to go home on an Oxymizer mid week. Status: Acute (2) Pulmonary fibrosis: Problem details: - continue with oxygen supplementation as instituted in the hospital. Likely will need home oxygen. - wean from high flow continues, no longer retaining CO2 - goal is have a baseline oxygen support at rest, pre-oxygenate 2-4 mins prior to activity, do her movements and then recover. RT to assist in home oxygen prescription with this plan - this may represent her new normal and introducing pallative care and/or hospice as appropriate. - 07/09 weaning to a trial of concentrated oxygen via NC today. Trying to step up activity slightly. Continue to space activities out to allow for pulmonary recovery. - as above and acute on chronic respiratory failure Status: Acute (3) Pneumonia: Problem details: - Suspected superimposed pneumonia, community-acquired. - ceftriaxone 1 g IV Q 24 (first dose 07/03, last dose 07/07) and oral doxycycline 100 mg twice daily 07/03-07/10. - completed antibiotics. Clinically resolved. Status: Resolved (4) Sinus tachycardia: Problem details: improved with metoprolol Status: Acute (5) Hypothyroidism: Problem details: - continue with levothyroxine supplementation - TSH >4, but free T4 normal. Status: Chronic (6) Chronic cough: Problem details: - hydroxyzine 25 mg q.4 hours p.r.n.. Status: Chronic (7) Anemia: Problem details: - Normocytic. Stable. No evidence of bleeding. Vitamin B12 level is within normal limits. Folate is pending. Iron studies show a low % saturation and iron, with normal total iron binding capacity. I suspect this is anemia of chronic disease associated with chronic kidney disease. Will give a trial of oral iron daily. Status: Acute Subjective Time Seen by Provider: 11:01 Date Seen: 07/10/23 Interval history: Queenie is feeling much better today. She has been walking around the room and notes a big difference in activity tolerance. She was able to be on the Oxymizer for a large portion of the daytime yesterday, but did have to go back on the high-flow at night as she was starting to wear out. She is back on the Oxymizer again today at a lower flow rate and feels good with that. Exam Narrative: Exam Narrative: General: No acute distress. Talking in full sentences. Awake, alert, oriented. No pallor. No jaundice. Oropharynx: Clear. Mucous membranes moist. Cardiovascular: Regular rate and rhythm. 2/6 holosystolic murmur, unchanged. Respiratory: Rhonchi throughout, unchanged. Abdomen: Bowel sounds present. Soft, nondistended, nontender. Extremities: No pedal edema. Const: Vital Signs, click to edit/add: Vital Signs - 24 hr 07/09/23 17:40 07/09/23 17:40 07/09/23 19:00 Temperature 97.1 F L Pulse Rate Pulse Rate [Pulse Oximeter] 90 Respiratory Rate 24 22 Blood Pressure [Le ft Arm] 122/62 Pulse Oximetry 92 Oxygen Delivery Me thod [place] Nasal Ca nnula Oxygen Flow Rate 2 Fraction of Inspir ed Oxygen 35 35 07/09/23 19:59 07/09/23 22:00 07/09/23 23:00 Temperature Pulse Rate 71 Pulse Rate [Pulse Oximeter] Respiratory Rate Blood Pressure [Le ft Arm] Pulse Oximetry Oxygen Delivery Me thod Oxygen Flow Rate Fraction of Inspir ed Oxygen 35 35 07/09/23 23:00 07/09/23 23:00 07/09/23 23:00 Temperature 97.5 F L Pulse Rate Pulse Rate [Pulse Oximeter] 80 80 Respiratory Rate 22 22 Blood Pressure [Le ft Arm] 140/77 H Pulse Oximetry 95 95 Oxygen Delivery Me thod [place] Nasal Ca nnula Oxygen Flow Rate 2 Fraction of Inspir ed Oxygen 35 07/09/23 23:32 07/10/23 02:00 07/10/23 03:00 Temperature 97.2 F L Pulse Rate Pulse Rate [Pulse Oximeter] 71 Respiratory Rate 22 Blood Pressure [Le ft Arm] 130/62 Pulse Oximetry 94 Oxygen Delivery Me thod [place] Nasal Ca nnula Oxygen Flow Rate 2 Fraction of Inspir ed Oxygen 35 35 35 07/10/23 04:00 07/10/23 06:00 07/10/23 07:00 Temperature Pulse Rate Pulse Rate [Pulse Oximeter] Respiratory Rate Blood Pressure [Le ft Arm] Pulse Oximetry 95 Oxygen Delivery Me thod Oxygen Flow Rate Fraction of Inspir ed Oxygen 35 35 07/10/23 07:27 07/10/23 07:30 07/10/23 07:45 Temperature 98.7 F Pulse Rate 84 Pulse Rate [Pulse Oximeter] 88 88 Respiratory Rate 24 24 Blood Pressure [Le ft Arm] 124/76 Pulse Oximetry 95 Oxygen Delivery Me thod [place] Nasal Ca nnula Oxygen Flow Rate 20 Fraction of Inspir ed Oxygen 35 07/10/23 08:03 07/10/23 08:58 07/10/23 09:25 Temperature Pulse Rate Pulse Rate [Pulse Oximeter] Respiratory Rate 20 Blood Pressure [Le ft Arm] Pulse Oximetry 89 Oxygen Delivery Me thod High [place] Nasal Ca nnula Oxygen Flow Rate 18 18 Fraction of Inspir ed Oxygen 25 25 25 07/10/23 12:30 07/10/23 15:00 Temperature 97.9 F Pulse Rate Pulse Rate [Pulse Oximeter] 97 Respiratory Rate 20 Blood Pressure [Le ft Arm] 124/66 Pulse Oximetry 97 96 Oxygen Delivery Me thod [place] Nasal Ca nnula Oxygen Flow Rate 3 Fraction of Inspir ed Oxygen Labs Labs: Laboratory Results - last 24 hr 07/10/23 06:20 Sodium 135 Potassium 4.3 Chloride 98 Carbon Dioxide 32 Anion Gap 5 L BUN 21 Creatinine 0.8 Estimated Creat Clear 38.36 Estimated GFR 73 Glucose 99 Calcium 8.9 Iron 22 L TIBC 343 % Saturation 7 L Vitamin B12 471
--- NOTE | 2023-07-10 18:39 | PC.NURSE ---
Patient pleasant, alert and oriented. Ambulated well with therapy this morning. Uses bedside commode with assist of one. Placed on O2 at 3 LPM?via an oximizer per RT. Patient tolerating and O2 sats were maintained above 90%.?Resp 24 at this time. Denied any dizziness, pain or SOB today. Patient reports feeling like she is taking deeper breaths today. Resp 24 at this time.?Lung sounds improved some compared to yesterday however she continues with?crackles in bases bilaterally and upper right lobe diminished compared to right. Tolerated regular diet. Daughter here visiting today. ?
[2023-07-10] MEDS: MIRTAZAPINE 15 MG TABLET 7.5 MG PO (20:16)
[2023-07-11] VITALS (7 sets, daily range): BP systolic 116–138; BP diastolic 64–94; PULSE 68–97; RESP 18–24; TEMP 36.4–36.6; O2SAT 92–97
--- NOTE | 2023-07-11 05:56 | PC.NURSE ---
Shift note: Pt had adequate sleep. Alert and oriented. Able to make needs known. Pt refused Neb at 0200. Vitally stable. No cough, pain or fever noted. Pt has been on 2L of oxygen throughout the shift.
[2023-07-11] MEDS: LEVOTHYROXINE 125 MCG TABLET PO (06:52)
[2023-07-11] MEDS: PSYLLIUM HUSK (WITH SUGAR) 12 GM PACKET PO (08:19)
[2023-07-11] MEDS: IPRAT-ALBUT 0.5-2.5 MG/3 ML NEB 1 NEB IH ×3 (08:19→21:25)
[2023-07-11] MEDS: FERROUS SULFATE 325 MG TABLET PO (08:19)
[2023-07-11] MEDS: MAGNESIUM OXIDE 400 MG TABLET PO (08:20)
[2023-07-11] MEDS: predniSONE 20 MG TABLET 60 MG PO (08:20)
[2023-07-11] MEDS: SENNOSIDES/DOCUSATE TABLET 1 TAB PO ×2 (08:20→21:25)
[2023-07-11] MEDS: METOPROLOL TARTRATE 25 MG TABLET PO ×2 (08:20→21:25)
[2023-07-11] MEDS: SODIUM CHLORIDE 0.9 % (FLUSH) 10 ML SYRINGE 5 ML IVF ×2 (08:21→21:26)
[2023-07-11] MEDS: BUDESONIDE 0.5 MG/2ML NEB 1 MG NEB (08:52)
--- NOTE | 2023-07-11 11:22 | NUTR.NU ---
Nutrition Follow-up: RDN visited with patient. Patient reported doing much better and that her appetite has improved since admit. She was eating a cinnamon roll during visit today. She asked to discontinue receiving nutrition supplements BID due to not liking the taste. Per nursing records, patient has refused supplements 50% of the time. Patient states once home, she would continue including Premier Protein shakes at least once daily. Oral intakes have improved since admit, 75%+ since 07/09/2023 however patient does refused x1 meal per day. Weight has slowly increased the past few days. Weight during admit: 07/03/2023 (admit) - 139lbs 6.4oz 07/07/2023 - 126lb 7oz 07/09/2023 - 128lb 5oz 07/11/2023 - 129lb 1oz Patient had no further questions or concerns. RDN will discontinue nutrition supplements per patient request. RDN encouraged oral intake and recommended patient include premier protein nutrition supplement at home. Will continue to monitor and follow-up prn.
--- NOTE | 2023-07-11 12:17 | P.IMPN_ITS ---
Progress Note: A&P Assessment and plan (1) Acute on chronic respiratory failure with hypoxemia: Problem details: - cause is severe pulmonary fibrosis plus a new respiratory insult. - appears to be more infectious than congested in nature. - received 5 doses of 1-gram IV Rocephin and is completing 7 days of BID oral Doxy (last dose is 1112 am) - CRP down trending. procal was normal on admission. BNP was elevated at >3000, but weight is down. 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 goal is 88- 90%. She previously was not on home O2. Will attempt wean to concentrated O2 via NC today 07/09. - 07/10 she is improving and able to be on Oxymizer for several hours a time in a day. Still requiring high-flow at night. Continue prednisone daily and she will need a long taper of several weeks to months. If she continues to make improvements it is possible she might be able to go home on an Oxymizer mid week. - 07/11 Able to be on Oxymizer overnight now. Having side effects of prednisone (insomnia, increased appetite). Start slow taper of prednisone. Will need to taper over weeks to months. Status: Acute (2) Pulmonary fibrosis: Problem details: - continue with oxygen supplementation as instituted in the hospital. Likely will need home oxygen. - wean from high flow continues, no longer retaining CO2 - goal is have a baseline oxygen support at rest, pre-oxygenate 2-4 mins prior to activity, do her movements and then recover. RT to assist in home oxygen prescription with this plan - this may represent her new normal and introducing pallative care and/or hospice as appropriate. - 07/09 weaning to a trial of concentrated oxygen via NC today. Trying to step up activity slightly. Continue to space activities out to allow for pulmonary recovery. - as above and acute on chronic respiratory failure Status: Acute (3) Anemia: Problem details: - Normocytic. Stable. No evidence of bleeding. Vitamin B12 level is within normal limits. Folate is pending. Iron studies show a low % saturation and iron, with normal total iron binding capacity. I suspect this is anemia of chronic disease associated with chronic kidney disease. Trialing oral iron daily. Status: Acute Plan Continue PT/OT. Appreciate their recommendations. Patient will likely need some supervision for a day or two at home since O2 will be new for her there. Possibly home tomorrow or next day. Subjective Time Seen by Provider: 08:10 Date Seen: 07/11/23 Interval history: Queenie complained of a terrible night. She was awake and ravenous most of the night. She was able to maintain O2 sats in the 90s overnight on the oxymizer. She is hoping to go home and be independent there. She spent 10 minutes this morning telling me about the layout of her home and how with few exceptions, she just has 3 steps between spots to sit. The longest distance to walk is through a short galley kitchen. She also has 3 steps up to the bathroom. Exam Narrative: Exam Narrative: General: No acute distress. Talking in full sentences. Awake, alert, oriented. No pallor. No jaundice. Oropharynx: Clear. Mucous membranes moist. Cardiovascular: Regular rate and rhythm. 2/6 holosystolic murmur, unchanged. Respiratory: Rhonchi throughout, unchanged. Abdomen: Bowel sounds present. Soft, nondistended, nontender. Extremities: No pedal edema. Const: Vital Signs, click to edit/add: Vital Signs - 24 hr 07/10/23 12:30 07/10/23 15:00 07/10/23 15:00 Temperature 97.9 F Pulse Rate 90 Pulse Rate [Pulse Oximeter] 97 Respiratory Rate 20 Blood Pressure [Le ft Arm] 124/66 Blood Pressure [Ri ght Arm] Pulse Oximetry 97 96 Oxygen Delivery Me thod [place] Nasal Ca nnula Oxygen Flow Rate 3 Fraction of Inspir ed Oxygen 07/10/23 16:30 07/10/23 18:40 07/10/23 19:00 Temperature 97.7 F 97.2 F L Pulse Rate Pulse Rate [Pulse Oximeter] 84 88 Respiratory Rate 32 H 24 24 Blood Pressure [Le ft Arm] 129/66 134/70 Blood Pressure [Ri ght Arm] Pulse Oximetry 95 93 Oxygen Delivery Me thod [place] Nasal Ca nnula [place] Nasal Ca nnula Oxygen Flow Rate 2 2 Fraction of Inspir ed Oxygen 25 07/10/23 23:00 07/10/23 23:00 07/10/23 23:00 Temperature Pulse Rate 68 Pulse Rate [Pulse Oximeter] 77 Respiratory Rate 24 Blood Pressure [Le ft Arm] Blood Pressure [Ri ght Arm] Pulse Oximetry 98 Oxygen Delivery Me thod Oxygen Flow Rate Fraction of Inspir ed Oxygen 07/10/23 23:00 07/11/23 03:00 07/11/23 07:00 Temperature 97.2 F L 97.5 F L Pulse Rate Pulse Rate [Pulse Oximeter] 77 80 Respiratory Rate 24 24 Blood Pressure [Le ft Arm] 116/56 L 121/67 Blood Pressure [Ri ght Arm] Pulse Oximetry 98 95 93 Oxygen Delivery Me thod [place] Nasal Ca nnula [place] Nasal Ca nnula Oxygen Flow Rate 2 2 Fraction of Inspir ed Oxygen 25 25 07/11/23 07:00 07/11/23 08:00 07/11/23 11:53 Temperature 98 F 97.7 F Pulse Rate 88 Pulse Rate [Pulse Oximeter] 93 87 Respiratory Rate 22 20 Blood Pressure [Le ft Arm] 135/64 Blood Pressure [Ri ght Arm] 116/94 H Pulse Oximetry 93 95 Oxygen Delivery Me thod [place] Nasal Ca nnula [place] Nasal Ca nnula Oxygen Flow Rate 2 2 Fraction of Inspir ed Oxygen
--- NOTE | 2023-07-11 14:36 | RESP.RT ---
Pt stable on oxymizer at 2L. Will qualify for oxygen when pt is ready for DC per Therapy. And family is in agreement with home plan. Discussed this with Pt. she seems to understand, A strong safety plan is needed for DC with oxygen.
--- NOTE | 2023-07-11 15:52 | PC.NURSE ---
Patient A&O, VSS and afebrile throughout this shift. Denies any pain, SOB or N/V. Patient's O2 maintained on 2L NC with reservoir. Decreased to 86-87% with activity but had quick recovery and no c/o breathlessness. Increased appetite eating both meals as well as snacks in between. SBA with gait belt & walker to bathroom, utilizing portable O2 tank. Patient continent of bowel & bladder. PIV right forearm SL clean, dry, intact. TELE read sinus arrhythmia. Prednisone decreased from 60mg to 40mg daily. Daughter here to visit this afternoon & met with SW to discuss discharge planning. Patient is hopeful to return home with home O2 either tomorrow (07/12) or Friday 07/13.
[2023-07-11] MEDS: MIRTAZAPINE 15 MG TABLET 7.5 MG PO (21:26)
[2023-07-12] VITALS (7 sets, daily range): BP systolic 136–157; BP diastolic 66–91; PULSE 67–99; RESP 16–24; TEMP 36–37.1; O2SAT 93–98
--- NOTE | 2023-07-12 02:44 | PC.NURSE ---
Shift unremarkable. Pt refused 0200 nebulizer before HS stating she did not want to be woken. VSS, SpO2 92-93% on 2L via NC. Denies pain.
[2023-07-12] MEDS: LEVOTHYROXINE 125 MCG TABLET PO (06:35)
[2023-07-12] MEDS: predniSONE 20 MG TABLET 40 MG PO (07:49)
[2023-07-12] MEDS: IPRAT-ALBUT 0.5-2.5 MG/3 ML NEB 1 NEB IH ×3 (07:49→20:15)
[2023-07-12] MEDS: FERROUS SULFATE 325 MG TABLET PO (07:49)
[2023-07-12] MEDS: BUDESONIDE 0.5 MG/2ML NEB 1 MG NEB ×2 (08:51→20:15)
[2023-07-12] MEDS: SENNOSIDES/DOCUSATE TABLET 1 TAB PO ×2 (08:52→20:15)
[2023-07-12] MEDS: SODIUM CHLORIDE 0.9 % (FLUSH) 10 ML SYRINGE 5 ML IVF ×2 (08:52→20:16)
[2023-07-12] MEDS: PSYLLIUM HUSK (WITH SUGAR) 12 GM PACKET PO (08:52)
[2023-07-12] MEDS: METOPROLOL TARTRATE 25 MG TABLET PO ×2 (08:52→20:15)
[2023-07-12] MEDS: MAGNESIUM OXIDE 400 MG TABLET PO (08:52)
--- NOTE | 2023-07-12 12:05 | P.IMPN_ITS ---
Progress Note: A&P Assessment and plan (1) Acute on chronic respiratory failure with hypoxemia: Problem details: - cause is severe pulmonary fibrosis plus a new respiratory insult. - appears to be more infectious than congested in nature. - received 5 doses of 1-gram IV Rocephin and is completing 7 days of BID oral Doxy (last dose is 1112 am) - CRP down trending. procal was normal on admission. BNP was elevated at >3000, but weight is down. 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 goal is 88- 90%. She previously was not on home O2. Will attempt wean to concentrated O2 via NC today 07/09. - 07/10 she is improving and able to be on Oxymizer for several hours a time in a day. Still requiring high-flow at night. Continue prednisone daily and she will need a long taper of several weeks to months. If she continues to make improvements it is possible she might be able to go home on an Oxymizer mid week. - 07/11 Able to be on Oxymizer overnight now. Having side effects of prednisone (insomnia, increased appetite). Start slow taper of prednisone. Will need to taper over weeks to months. - 07/12 stable on Oxymizer. First day of prednisone 40mg daily today. Working on safe discharge home. Status: Acute (2) Pulmonary fibrosis: Problem details: - continue with oxygen supplementation as instituted in the hospital. Likely will need home oxygen. - wean from high flow continues, no longer retaining CO2 - goal is have a baseline oxygen support at rest, pre-oxygenate 2-4 mins prior to activity, do her movements and then recover. RT to assist in home oxygen prescription with this plan - this may represent her new normal and introducing pallative care and/or hospice as appropriate. - 07/09 weaning to a trial of concentrated oxygen via NC today. Trying to step up activity slightly. Continue to space activities out to allow for pulmonary recovery. - as above in acute on chronic respiratory failure Status: Acute (3) Anemia: Problem details: - Normocytic. Stable. No evidence of bleeding. Vitamin B12 level is within normal limits. Folate is pending. Iron studies show a low % saturation and iron, with normal total iron binding capacity. I suspect this is anemia of chronic disease associated with chronic kidney disease. Trialing oral iron daily. Recheck in Hgb 1 week. 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 Patient working to set up home supervision. Time Spent With Patient Total time spent: Today I spent 35 minutes rounding on the patient. Greater than 50% included discussing plan for homegoing with the patient, care with the team, reviewing data, updating and managing the care plan, working on home oxygen, working on home health. Subjective Time Seen by Provider: 08:15 Date Seen: 07/12/23 Interval history: Queenie is worked up this morning. She tells me that she cannot go home with a long tube of oxygen because she is afraid of getting tangled in it and falling. PT and OT to me that she did fine getting around with the oxygen to be yesterday and had no concerns about that, but do want her to have 24 hour supervision. I spoke with Queenie about that recommendation today and she said that she has spoken with Norma Durham who has personal support worker to work for her and is going to have 1 of those personal attendance, out to her house when she is discharged and be with her for a few days. Queenie said that Norma is going to be talking with her either in person or over the phone later today they hope to have a plan for her to go home tomorrow. Exam Narrative: Exam Narrative: General: No acute distress. Talking in full sentences. Awake, alert, oriented. No pallor. No jaundice. Affect: Agitated, angry. Oropharynx: Clear. Mucous membranes moist. Cardiovascular: Regular rate and rhythm. 2/6 holosystolic murmur, unchanged. Respiratory: Rhonchi throughout, unchanged. Const: Vital Signs, click to edit/add: Vital Signs - 24 hr 07/11/23 15:00 07/11/23 15:00 07/11/23 15:00 Temperature Pulse Rate 97 Pulse Rate [Apical ] Pulse Rate [Pulse Oximeter] 93 Respiratory Rate 20 Blood Pressure [Le ft Arm] Blood Pressure [Ri ght Arm] Pulse Oximetry 93 Oxygen Delivery Me thod Oxygen Flow Rate Fraction of Inspir ed Oxygen 07/11/23 15:00 07/11/23 19:00 07/11/23 23:00 Temperature 97.7 F 97.5 F L Pulse Rate Pulse Rate [Apical ] Pulse Rate [Pulse Oximeter] 68 76 Respiratory Rate 20 18 Blood Pressure [Le ft Arm] 138/79 Blood Pressure [Ri ght Arm] 122/68 Pulse Oximetry 92 97 97 Oxygen Delivery Me thod [place] Nasal Ca nnula [place] Nasal Ca nnula Oxygen Flow Rate 2 2 Fraction of Inspir ed Oxygen 25 07/11/23 23:00 07/11/23 23:00 07/11/23 23:00 Temperature 97.5 F L Pulse Rate 74 Pulse Rate [Apical ] Pulse Rate [Pulse Oximeter] 76 76 Respiratory Rate 18 18 Blood Pressure [Le ft Arm] 138/79 Blood Pressure [Ri ght Arm] Pulse Oximetry 97 Oxygen Delivery Me thod [place] Nasal Ca nnula Oxygen Flow Rate 2 Fraction of Inspir ed Oxygen 07/12/23 04:15 07/12/23 11:30 Temperature 96.9 F L 98.7 F Pulse Rate Pulse Rate [Apical ] 89 Pulse Rate [Pulse Oximeter] 85 89 Respiratory Rate 16 24 Blood Pressure [Le ft Arm] 157/87 H Blood Pressure [Ri ght Arm] 155/91 H Pulse Oximetry 94 95 Oxygen Delivery Me thod [place] Nasal Ca nnula Nasal Cannula Oxygen Flow Rate 2 2.5 Fraction of Inspir ed Oxygen
--- NOTE | 2023-07-12 13:03 | RESP.RT ---
Patient on 2.5 lpm oxymizer at rest with spo2 94%. Patient tested on room air with desaturations to 76%. Patient with walking oximetry requiring 5 lpm to keep spo2 aboe 92%. Home oxygen order placed and discussed with Dr. Darden.
--- NOTE | 2023-07-12 14:25 | PC.SOCIAL ---
Discharge planning: Late entry: on 07/11/23, Met with pt who had been planning to discharge to her daughter, Pattie's home where she would have 24/7 assistance of family. Pt stated she has found out her daughter may have shingles and her daughter in law who could stay with her has a cold. Pt states she wants to return home at discharge to her own home and have her daughter in law stay with her for a few days to assist with transition. If dtr-in-law is not available, she states she would like to hire attendant care. While health care social worker was in the room, pt called dtr in law who agreed to stay with pt at her home at discharge and provide any needed care. Pt is refusing a fpc placement and insisting on discharge to her own home. Pt is concerned about using her new cane and home oxygen at home and is interested in home care covered by her insurance being arranged. Provided pt with information on home care agencies. Pt does not have a preferred home care agency and wants to get back to health care social worker about this. airport utility worker requested permission to contact her daughter who is helping her to set up a plan for home. Pt refused for health care social worker to call her daughter. Later on 07/11/23, pt's daughter, Pattie, came to visit. airport utility worker brought in written information on home attendent care and home delivered meals requested during earlier visit with pt. This information was previously provided to pt and dtr last week. airport utility worker to follow up as needed.
--- NOTE | 2023-07-12 14:32 | PC.SOCIAL ---
Discharge planning: Met with pt regarding d/c plan. Pt states she does not want to have the home oxygen that has a cord and wants a tank without a cord. Explained to pt that the cord will be needed with home equipment. She is concerned about tripping on the cord. Pt states her daughter Pattie is arranging for care at home with Peyton Morillo and that she needs to talk to Peyton today to find out what she can provide. Pt is aware of MD order Offered to call her daughter Pattie. Pt refused for social sciences department chair to update her daughter on discharge plans. forest nursery worker received a message from daughter, Pattie, requesting a call back. Met with pt, who agreed for social sciences department chair to call Pattie. Called Pattie [phone]. Pattie states she is felling like she has to do all the planning and is not being given information. Shared with her that the hospital is not able to reach out to her when the patient is refusing to have hospital staff contact her. Dtr states she has reached out to Peyton Morillo to find out who she would recommend for home care and will get back to social sciences department chair when she gets that information. Dtr is requesting social sciences department chair wait to contact possible agencies until she gets this information. Dtr states that information social sciences department chair provided to pt for home delivered meals did not include any agencies that are able to deliver to [place]. Dtr requested social sciences department chair look into this and provide pt with accurate information on delivered meals to [place]. forest nursery worker called [facility] agency and confirmed they provide delivered meals to [place]. Direct phone number for this program is [phone] and meals are delivered from [employer] in [place] at a recommended donation cost of $4.50. The other mail deivered resources on this list also are able to deliver to [place]. Provided this information to patient.
--- NOTE | 2023-07-12 19:04 | PC.NURSE ---
End of shift [id number] ? Pt alert, oriented, and pleasant during shift. Pt up with walker, gait belt, 1 assist to bathroom. Continent of bowel and bladder. Pt tolerating 2L of O2?via oxymask oxymiser, maintaining O2 saturation above 90%. Pt stated feeling ?like doing nothing? today and reported spending most of day in bed. RN provided education regarding movement and daily activity. Pt verbalized understanding of teaching. Appears to be resting comfortably at end of shift. ?
[2023-07-12] MEDS: MIRTAZAPINE 15 MG TABLET 7.5 MG PO (20:15)
[2023-07-12 22:44] LABS: Folate, Serum 11.6 ng/mL (>=5.9)
[2023-07-13] MEDS: LEVOTHYROXINE 125 MCG TABLET PO (05:39)
[2023-07-13 05:44] VITALS: RESP 20
--- NOTE | 2023-07-13 06:01 | PC.NURSE ---
End of shift report [id number]: Patient slept well, oxygen sats remained >90% on 2L per oxymizer mask. Denies cough or dyspnea. Lung sounds clear but diminished in bases. Ambulates with SBA with gait belt and walker. Patient reporting excitement and apprehension with discharging home. She states i know i'm dying, i'm ok with it. Patient was able to express fears and happiness over going home and living meaningfully. Denies any pain.
[2023-07-13 07:00] VITALS: BP 145/73; PULSE 87; RESP 20; O2SAT 97
[2023-07-13] MEDS: BUDESONIDE 0.5 MG/2ML NEB 1 MG NEB (07:54)
[2023-07-13] MEDS: predniSONE 20 MG TABLET 40 MG PO (07:54)
[2023-07-13] MEDS: FERROUS SULFATE 325 MG TABLET PO (07:54)
[2023-07-13] MEDS: IPRAT-ALBUT 0.5-2.5 MG/3 ML NEB 1 NEB IH (07:54)
[2023-07-13] MEDS: MAGNESIUM OXIDE 400 MG TABLET PO (07:55)
[2023-07-13] MEDS: SENNOSIDES/DOCUSATE TABLET 1 TAB PO (07:55)
[2023-07-13] MEDS: METOPROLOL TARTRATE 25 MG TABLET PO (07:55)
[2023-07-13 07:57] VITALS: PULSE 88
--- NOTE | 2023-07-13 09:53 | PC.SOCIAL ---
Discharge planning: Met with pt who is requesting hospice care at discharge instead of home care. Provided pt with resource list of hospice agencies. Pt states her had hospice at home and she thinks it was with [facility]. Pt states she has been pleased with [facility] in the past and is requesting hospice referral be sent to [facility] for follow up. PT is aware [facility] will follow up as home after discharge and confirmed she wants to be the contact for hospice. Called [facility] [phone] ([place] office [phone]) and spoke with intake. Confirmed they have availability to accept a new hospice referral and will fax information to [facility] at [phone] for follow up. Pt is pleased with this plan and is aware of how to contact social and political studies professor if she has any additional discharge planning needs.
--- NOTE | 2023-07-13 10:40 | P.DS_ITS ---
DS: Providers Provider Time Seen by Provider: 07:55 Date Seen: 07/13/23 Date of admission: 07/03/23 20:25 Primary care physician: Yosef Caraballo MD Admitting Clinician: Vincent Serna MD Consults: 07/03/23 20:25 Consult to Nutrition [CONS] Routine Comment: Reason for consult:: Weight Loss Consult to Occupational Therapy [CONS] Routine Comment: Reason(s) for OT Consult:: Evaluate and Treat Any Restrictions?:: No Restrictions Consult to Physical Therapy [CONS] Routine Comment: Reason(s) for PT Consult:: Evaluate and Treat Any Restrictions?:: No Restrictions Consult to Respiratory Therapy [CONS] Routine Comment: Reason(s) for RT Consult:: Consult Consult to Account Resolution Specialist [CONS] Routine Comment: Reason for Consult:: Discharge Planning Needs 07/04/23 08:27 Consult to Respiratory Therapy [CONS] Routine Comment: Reason(s) for RT Consult:: Consult Attending Physician on discharge: Tori Dutton MD Date of Discharge: 07/13/23 DS: Diagnosis Discharge Diagnosis (1) Acute on chronic respiratory failure with hypoxemia: Status: Acute Problem details: - cause is severe pulmonary fibrosis plus a new respiratory insult. - appears to be more infectious than congested in nature. - received 5 doses of 1-gram IV Rocephin and is completing 7 days of BID oral Doxy (last dose is 11 am) - CRP down trending. procal was normal on admission. BNP was elevated at >3000, but weight is down. She appears evulomeic - INDUSTRIAL CHEMIST was on 5mg of prednisone daily, from 07/03-07/07 she was up to 10mg daily (pt resistant to increased doses), but on 07/08 started 60mg daily (1mg/kg) - she continues on high-flow nasal cannula oxygen FiO2 25%, 20 L. goal is 88- 90%. She previously was not on home O2. Will attempt wean to concentrated O2 via NC today 07/09. - 07/10 she is improving and able to be on Oxymizer for several hours a time in a day. Still requiring high-flow at night. Continue prednisone daily and she will need a long taper of several weeks to months. If she continues to make improvements it is possible she might be able to go home on an Oxymizer mid week. - 07/11 Able to be on Oxymizer overnight now. Having side effects of prednisone (insomnia, increased appetite). Start slow taper of prednisone. Will need to taper over weeks to months. - 07/12 stable on Oxymizer. First day of prednisone 40mg daily today. Working on safe discharge home. - 07/13 patient desires Hospice. SW has contacted [facility] hospice who's able to admit patient tomorrow. Patient going home today on oxymizer with a private company helping with supervision at home starting at noon today. (2) Anemia: Status: Acute Problem details: - Normocytic. Stable. No evidence of bleeding. Vitamin B12 level is within normal limits. Folate is pending. Iron studies show a low % saturation and iron, with normal total iron binding capacity. I suspect this is anemia of chronic disease associated with chronic kidney disease. Oral iron daily. (3) Sinus tachycardia: Status: Resolved Problem details: improved with metoprolol (4) Hypertension: Status: Acute Problem details: - continue supportive efforts. (5) Pulmonary fibrosis: Status: Acute Problem details: - continue with oxygen supplementation as instituted in the hospital. Likely will need home oxygen. - wean from high flow continues, no longer retaining CO2 - goal is have a baseline oxygen support at rest, pre-oxygenate 2-4 mins prior to activity, do her movements and then recover. RT to assist in home oxygen pre scription with this plan - this may represent her new normal and introducing pallative care and/or hospice as appropriate. - 07/09 weaning to a trial of concentrated oxygen via NC today. Trying to step up activity slightly. Continue to space activities out to allow for pulmonary recovery. - as above in acute on chronic respiratory failure (6) Pneumonia: Status: Resolved Problem details: - Suspected superimposed pneumonia, community-acquired. - ceftriaxone 1 g IV Q 24 (first dose 07/03, last dose 07/07) and oral doxycycline 100 mg twice daily 07/03-07/10. - completed antibiotics. Clinically resolved. (7) Chronic cough: Status: Chronic Problem details: - hydroxyzine 25 mg q.4 hours p.r.n.. (8) Chronic dyspnea: Status: Acute Problem details: - patient already notes an improvement in her condition with oxygen supplementation. (9) Hypothyroidism: Status: Chronic Problem details: - continue with levothyroxine supplementation - TSH >4, but free T4 normal. DS: Summary Hospital Course Hospital Course: This is an 83-year-old female with a history of pulmonary fibrosis who presented through the emergency department with acute on chronic dyspnea. She had not previously required oxygen supplementation, but had noticed that her oxygen saturations have been in the 70s for at least the last 2-3 weeks. She required 10 liters/minute of a rebreather oxygen mask supplementation when she 1st arrived. She was suspected to have a community-acquired superimposed pneumonia on top of pulmonary fibrosis that has likely been worsening over the last few months. For the pneumonia she was given ceftriaxone and doxycycline and has finished that course. She was also started on prednisone for pulmonary fibrosis that was not responding to supportive cares and did have some improvement, but is committed to oxygen supplementation at this point. She describes quite a bit of weight loss over the last few months, we have the following documented: 12/20/2022, 68 kg 03/04/2023, 63 kg 07/06/2023, 57 kg We were able to wean her down on oxygen as she was on a high-flow for a bit, and now she is on an Oxymizer which gives her the ability to go home. She has chosen to be enrolled in hospice and Khadijah will see her tomorrow. She and I had had discussions about how hospice will not be able to be in the home caring for her 21/03, and it is our recommendation that she have 24 hour supervision. I was able to speak with her daughter yesterday also about these recommendations. They have chosen a private staff home therapy rn who will meet her there at noon today. Please see diagnoses above for full details. Time Spent with Patient Time attestation: Total time spent providing and/or coordinating discharge services: Exam Narrative: Exam Narrative: General: No acute distress. Talking in full sentences. Awake, alert, oriented. No pallor. No jaundice. Affect: Brighter today, no agitation. Oropharynx: Clear. Mucous membranes moist. Cardiovascular: Regular rate and rhythm. 2/6 holosystolic murmur, unchanged. Respiratory: Rhonchi throughout, unchanged. Const: Vital Signs, click to edit/add: Vital Signs - 24 hr 07/12/23 11:30 07/12/23 12:34 07/12/23 15:00 Temperature 98.7 F Pulse Rate 67 Pulse Rate [Apical ] 89 Pulse Rate [Pulse Oximeter] 89 Respiratory Rate 24 Blood Pressure [Le ft Arm] 157/87 H Blood Pressure [Ri ght Arm] Pulse Oximetry 95 95 Oxygen Delivery Me thod Nasal Cannula Oxygen Flow Rate 2.5 Fraction of Inspir ed Oxygen 07/12/23 15:00 07/12/23 15:00 07/12/23 19:00 Temperature 96.8 F L 97.3 F L Pulse Rate 99 Pulse Rate [Apical ] 90 Pulse Rate [Pulse Oximeter] 96 Respiratory Rate 20 20 Blood Pressure [Le ft Arm] 136/66 Blood Pressure [Ri ght Arm] 136/71 Pulse Oximetry 95 96 Oxygen Delivery Me thod Nasal Cannula Nasal Cannula Oxygen Flow Rate 2 2 Fraction of Inspir ed Oxygen 25 07/12/23 23:00 07/12/23 23:00 07/12/23 23:00 Temperature Pulse Rate 78 Pulse Rate [Apical ] 90 Pulse Rate [Pulse Oximeter] 96 Respiratory Rate 20 Blood Pressure [Le ft Arm] Blood Pressure [Ri ght Arm] Pulse Oximetry 98 Oxygen Delivery Me thod Oxygen Flow Rate Fraction of Inspir ed Oxygen 07/12/23 23:00 07/13/23 05:44 07/13/23 07:57 Temperature 97.3 F L Pulse Rate 88 Pulse Rate [Apical ] 90 Pulse Rate [Pulse Oximeter] Respiratory Rate 20 20 Blood Pressure [Le ft Arm] 136/66 Blood Pressure [Ri ght Arm] Pulse Oximetry 96 Oxygen Delivery Me thod Nasal Cannula Oxygen Flow Rate 2 Fraction of Inspir ed Oxygen 25 DS: Data Data Completed and Pending Completed studies during hospitalization: 07/03/2023 EKG: Sinus tachycardia with premature supraventricular complexes and with occasional premature ventricular complexes, 128 beats per minute, left ventricular hypertrophy with repolarization abnormality. 07/04/2023 EKG: Sinus tachycardia with premature atrial complexes with aberrant conduction, 106 beats per minute, possible left atrial enlargement, left ventricular hypertrophy with repolarization abnormality. 07/04/2023 echocardiogram: Normal LV size, normal wall thickness, normal global systolic function with an estimated EF of 55-60%. Right ventricular cavity size is normal, global systolic RV function is normal. Mildly enlarged left atrium. The aortic valve is sclerotic and calcified. The valve is functionally bicuspid with fusion and relative immobilization of the non coronary and left coronary cusps. No significant aortic stenosis (mean gradient 5 mm Hg, NORBERT 2.14 centimeter squared, DI 0.64, SP I 39 mL per m2) and trivial aortic insufficiency. Mitral valve is sclerotic, trace mitral regurgitation. Trace tricuspid regurgitation with an estimated RSVP of 48 mm Hg plus the RA pressure (compatible with at least moderate pulmonary hypertension). IVC geometry compatible with a normal estimated RA pressure (3 mm Hg). No prior studies for comparison. Ordering Physician: Vincent Serna M.D. Date of Service: 07/03/23 Procedure(s): XR chest 1V portable Accession Number(s): [id number] cc: Yosef Caraballo M.D.; Vincent Serna M.D.~ For Patients: As a result of the Cures Act, medical imaging exams and procedure reports are released immediately into your electronic medical record. You may view this report before your referring provider. If you have questions, please contact your health care provider. INDICATION: Shortness of breath TECHNIQUE: Chest 1 view. COMPARISON: Chest x-ray 03/04/2023 FINDINGS/IMPRESSION: Heart is stable in size. There is increasing interstitial thickening and opacities, bilaterally. This could represent acute pulmonary edema or pneumonia superimposed upon chronic interstitial changes. Dictated by Jennifer De La Rosa MD @ 07/03/2023 5:25:13 PM Dictated by: Jennifer De La Rosa MD @ 07/03/2023 17:25:18 (Electronically Signed) Ordering Physician: Vincent Serna M.D. Date of Service: 07/03/23 Procedure(s): CT angio chest PE protocol Accession Number(s): [id number] cc: Yosef Caraballo M.D.; Vincent Serna M.D.~ For Patients: As a result of the Cures Act, medical imaging exams and procedure reports are released immediately into your electronic medical record. You may view this report before your referring provider. If you have questions, please contact your health care provider. INDICATION: Shortness of breath TECHNIQUE: CT chest pulmonary angiogram acquired with IV contrast. 95 mL Isovue 370 COMPARISON: None FINDINGS: Cardiovascular structures: Normal caliber thoracic aorta. Main pulmonary artery appears enlarged which be seen with pulmonary arterial hypertension. No pulmonary emboli. Heart is enlarged. Coronary artery calcification. Mediastinum and britney: Mediastinal and right hilar adenopathy. This could be reactive. Lungs: Emphysema. Diffuse ground-glass opacities. Right greater than left patchy consolidation. There is diffuse bronchiectasis as well probable honeycombing. Pleura and pericardium: No effusions. Chest wall and axilla: No mass or adenopathy. Bones: No significant findings. Upper abdomen: Unremarkable. Diffuse subcutaneous edema. IMPRESSION: 1. No pulmonary emboli. 2. Diffuse bilateral ground-glass opacities and interstitial opacities. There is bibasilar right greater than left patchy consolidation. There is bronchiectasis and honeycombing. Findings probably reflect pulmonary edema with pulmonary fibrosis. Basilar patchy consolidation right greater than left could be related to superimposed pneumonia/infection Please note that all CT scans at this facility use dose modulation, iterative reconstruction, and/or weight-based dosing when appropriate to reduce radiation dose to as low as reasonably achievable. Dictated by Mary Ann Fisher MD @ 07/03/2023 8:25:53 PM (Electronically Signed) Ordering Physician: Dawna Macias M.D. Date of Service: 07/06/23 Procedure(s): XR chest 1V portable Accession Number(s): [id number] cc: Dawna Macias M.D.; Yosef Caraballo M.D.~ For Patients: As a result of the Century Cures Act, medical imaging exams and procedure reports are released immediately into your electronic medical record. You may view this report before your referring provider. If you have questions, please contact your health care provider. INDICATION: Pulmonary fibrosis, not otherwise described. TECHNIQUE: [facility] COMPARISON: 07/03/2023, 03/04/2023. Chest CT 07/03/2023.. FINDINGS: Patient positioning: The patient is not rotated. Shallow inspiration. Heart and mediastinum: Unchanged compared to 03/04/2023. Rightward deviation of the trachea is present as before. Lungs and pleural spaces: Diffuse bilateral reticular and ground-glass opacities, unchanged. Patchy bilateral lower lobe consolidation demonstrated to better advantage on the recent prior chest CT of 07/03/2023 is less well appreciated on this imaging modality. No significant pleural effusion. Bones and soft tissues: No acute findings. IMPRESSION: Diffuse bilateral nonspecific lung disease described above, without significant interval change. Acute pneumonia superimposed upon nonspecific bilateral interstitial lung disease is not excluded. Clinical correlation is recommended in this regard. Dictated by Yaniv Hahn MD @ 07/06/2023 10:18:13 AM (Electronically Signed) Labs on day of discharge: Labs from last 24 hours 07/10/23 06:20 RBC Fol Mahesh for Serum 11.6 Discharge Plan Discharge Disposition: Xfer Home- (Hospice) Date of Admission: 07/03/23 20:25 Attending Provider on Discharge: Tori Dutton Primary Care Provider: Yosef Caraballo Condition: Improved Discharge Medications: New prednisone 20 mg Tablet See Rx Instructions .ROUTE .COMPLEX Qty: 25 0RF Rx Instructions: 40 mg PO daily for 7 days, then 20 mg PO daily for 7 days, then 10 mg PO daily for 7 days, then 5 mg PO daily chronically mirtazapine 15 mg Tablet 7.5 mg PO HS Qty: 15 0RF Continued multivitamin [Multiple Vitamins] Tablet 1 tab PO DAILY omega-3 fatty acids 1,000 mg capsule 1,000 mg PO DAILY arginine HCl (L-arginine) 1,000 mg tablet 3,000 mg PO DAILY magnesium 250 mg tablet 250 mg PO DAILY lutein 20 mg capsule 20 mg PO DAILY Rx Instructions: give with meal/snack Held prednisone 10 mg tablet 5 mg PO DAILY Hold Instructions: Resume on 08/03/23. Restart when taper is complete Discontinued levothyroxine 125 mcg tablet 125 mcg PO DAILY Discharge Orders: Discharge Order (Routine); Ordered 07/13/23 Ordered By: Tori Dutton Additional Instructions: Oxygen via oxymizer. Activity Level: Activity as Tolerated, Use Cane and Use Walker Discharge Diet: Regular Follow Up Appointments: Yosef Caraballo MD [Primary Care Provider] - Forms: When You Wish Info Instructions
[2023-07-13 13:55] VITALS: RESP 22; O2SAT 89
--- NOTE | 2023-07-13 13:57 | RESP.RT ---
Patient switching back and for from NC to Oxymizer cannula, with activity needs latter. SaO2 85-90%. Home instruction, education, information, and safety given to Patient and daughter. Both understand and state so. Patient trail on POC at 3 Lpm, did well, SaO2 92% resting on edge of bed. Patient Home with [employer] equipment of POC, E-cylinder, and assortive NC, Oxymizer, Oxygen tubing.
--- NOTE | 2023-07-13 14:09 | REH.OT ---
OT: Kimberlyn informed OT that patient is requesting walker be issued as she now reports does not have a walker at home as reported. No PT available. OT issued 2ww through [facility] with documentation provided to patient and patient's daughter, Bita at time of d/c.
--- NOTE | 2023-07-13 15:42 | PC.NURSE ---
Discharge - Pt alert, oriented, and pleasant during shift. Increased SOB with exertion, able to recover quickly with controlled breathing strategies and rest. Pt up with standby assistance and walker. Continent of bowel and bladder. Tolerating nasal cannula with 2L of O2 and maintaining saturation above 90%. Pt reported she was ready for discharge and to enroll in homecare services. Pt voiced acceptance of prognosis and shared that she had difficult conversations with friends and family to share her decision, RN provided emotional support and pt reported feeling at peace with situation. Pt discharged to home with daughter at approximately 13:44.
--- NOTE | 2023-07-14 11:38 | PC.SOCIAL ---
Addendum entered by GILDARDO De Leon 07/14/23 14:47: Confirmed all information was received at [facility], and they will open for services at 4:00 pm. Phone call to pt's daughter, Adelaida, and provided update. Original Note: Received a phone call from pt's daughter (Adelaida) at [phone] stating that pt is in need of hospice services and they have not gotten any follow through from [facility]. Pt's daughter states that Khadijah called them yesterday and they couldn't reach the phone to get the call in time, pt's daughter reports when she called [facility] back they did not know who called and stated that someone will call you back. Pt's daughter reports that they still have not heard from them. This worker offered to reach out to [facility] to ensure they would be coming to the home today and pt's daughter declined and informed that she has made the decision to switch to [facility] at the recommendation of Peyton Morillo. Pt's daughter has been working with Janna from [facility] and they are able to open pt with hospice services today. Received a phone call from Janna at [facility] at [phone]. Janna informs that they are able to open pt with hospice services today at 4:00 pm and requests information to be faxed to her at [phone]. Faxed referral packet to [facility]. Social work will follow up as needed.
== END 2023-07-13 13:44 | disposition hospice, home (50) | DRG 189 ==
LOC: ED 19:16 → MEDSURG 20:09
PROVIDERS: Family Medicine; Admitting Provider Internal Medicine; Emergency Provider Family Medicine; PCP Family Medicine; Visit Provider Internal Medicine
DX: J96.21 Acute and chronic respiratory failure with hypoxia (principal); J18.9 Pneumonia, unspecified organism; J81.1 Chronic pulmonary edema; J84.10 Pulmonary fibrosis, unspecified; I12.9 Hypertensive chronic kidney disease with stage 1 through stage 4 chronic kidney disease, or unspecified chronic kidney disease; N18.32 Chronic kidney disease, stage 3b; D63.1 Anemia in chronic kidney disease; R00.0 Tachycardia, unspecified; E03.9 Hypothyroidism, unspecified; R05.3 Chronic cough; R04.0 Epistaxis
CPT/HCPCS: 36415; 36600; 71045; 71275; 80048; 82607; 82746; 82803; 83540; 83550; 83605; 83735; 83880; 84100; 84145; 84439; 84443; 84484; 85025; 85027; 85379; 85610; 85730; 86140; 87631; 93005; 93306; 94640; 94761; 97110; 97116; 97163; 97165; 97530; 97535; 99285; 99291; G0378; A9270; J0456; J0696; J1940; J7050; J7512; J7626; Q9967